=== PATIENT | female | born 1990 | race Caucasian/White ===

== ENCOUNTER 2024-06-10 06:52 | Inpatient (IN) | payer OTHER ==
[~2024-06-10] VITALS: Ht 177.8 cm; Wt 86.8 kg
[2024-06-10] MEDS: cefTRIAXone 1GM/50ML D5W 50 ML IV SCH (01:45)
[2024-06-10 07:35] VITALS: PULSE 117; RESP 28; O2SAT 97
--- NOTE | 2024-06-10 09:19 | ED.PDOC ---
SOB-HPI HPI Comments 34 y.o female with PMH of DM, presents to the ED via EMS for a chief complaint of SOB associated with body aches, chills, nausea and vomiting that started one day ago. Patient reports recent contact exposure to by family x 1 week ago. Per EMS patient's blood glucose was 376 and route and upon ED arrival at read 471. Patient denies any chest pain, fevers, urinary symptoms. Chief Complaint: Shortness of Breath Time Seen by MD: 09:03 Reviewed notes: Nurses Notes, Medications, Allergies Information Source: Patient Mode of Arrival: EMS Severity: Moderate Timing: Days (1) Duration: Since onset Context: At Rest PE Risk Factors: None History of: None Modifying Factors: Nothing Associated Signs and Symptoms: Other Past Medical History PAST MEDICAL HISTORY: DM Surgical History: Denies all surgeries BUSINESS FUNCTIONAL ANALYST History: No Pertinent BUSINESS FUNCTIONAL ANALYST History Family History Family History: Reviewed,noncontributory to illness Social History Smoker: Non-Smoker Alcohol: Denies ETOH Use Drugs: Denies Drug Use Lives In: Home Constitutional: reports: chills; denies: diaphoresis, fatigue, fever, malaise, sweats, weakness, others EENTM: denies: blurred vision, double vision, ear bleeding, ear discharge, ear drainage, ear pain, ear ringing, eye pain, eye redness, hearing loss, mouth pain, mouth swelling, nasal discharge, nose bleeding, nose congestion, nose pain, photophobia, tearing, throat pain, throat swelling, voice changes, others Respiratory: reports: SOB at rest, shortness of breath, SOB with excertion; denies: cough, hemoptysis, orthopnea, stridor, wheezing, others Cardiovascular: denies: chest pain, dizzy spells, diaphoresis, Dyspnea on exertion, edema, irregular heart beat, left arm pain, lightheadedness, palpitations, PND, syncope, others Gastrointestinal: reports: nausea, vomiting; denies: abdomen distended, abdominal pain, blood streaked bowels, constipated, diarrhea, dysphagia, difficulty swallowing, hematemesis, melena, poor appetite, poor fluid intake, rectal bleeding, rectal pain, others Genitourinary: denies: abnormal vagina bleeding, burning, dyspareunia, dysuria, flank pain, frequency, hematuria, incontinence, pain, , vagina disch arge, urgency, others Neurological: denies: dizziness, fainting, headache, left sided numbness, left sided weakness, numbness, paresthesia, pre-existing deficit, right sided numbness, right sided weakness, seizure, speech problems, tingling, tremors, weakness, others Musculoskeletal: reports: muscle pain; denies: back pain, gout, joint pain, joint swelling, muscle stiffness, neck pain, others Integumetry: denies: bruises, change in color, change in hair/nails, dryness, laceration, lesions, lumps, rash, wounds, others Allergic/Immunocompromised: denies: Difficulty Healing, Frequent Infections, Hives, Itching, others Hematologic/Lymphatic: denies: anemia, blood clots, easy bleeding, easy bruising, swollen glands, others Endocrine: denies: excessive hunger, excessive sweating, excessive thirst, excessive urination, flushing, intolerance to cold, intolerance to heat, unexplained weight gain, unexplained weight loss, others Psychiatric: denies: anxiety, bipolar disorder, depression, hopeless, panic disorder, schizophrenia, sleepless, suicidal, others All Other Systems: Reviewed and Negative Physical Exam General Appearance: Moderate Distress, Normal HEENT: Normal ENT Inspection, Pharynx Normal, TMs Normal Neck: Full Range of Motion, Non-Tender, Normal, Normal Inspection Respiratory: Chest Non-Tender, Lungs Clear, No Accessory Muscle Use, No Respiratory Distress, Normal Breath Sounds Cardiovascular: No Edema, No JVD, No Murmur, No Gallop, Normal Peripheral Pulses, Regular Rate/Rhythm Breast Exam: Deferred Gastrointestinal: No Organomegaly, Non Tender, No Pulsatile Mass, Normal Bowel Sounds, Soft Genitalia: Deferred Pelvic: Deferred Rectal: Deferred Extremities: No calf tenderness, Normal capillary refill, Normal inspection, Normal range of motion, Non-tender, No pedal edema Musculoskeletal : Apperance: Normal Neurologic: Alert, speech language pathologist travel II-XII nml as Tested, No Motor Deficits, Normal Affect, Normal Mood, No Sensory Deficits Cerebellar Function: Normal Reflexes: Normal Skin: Dry, Normal Color, Warm Lymphatic: No Adenopathy Was a procedure done? Was a procedure done?: No Differential Dx Differential Diagnosis: Asthma, Bronchitis, Respiratory Distress, URI Comments Hyperglycemia, DKA, electrolyte imbalance, Dehydration X-Ray, Labs, Meds, VS Vital Signs Date Time Temp Pulse Resp B/P (MAP) Pulse Ox O2 Delivery O2 Flow Rate FiO2 06/10/24 08:00 107 06/10/24 07:35 117 28 97 Room Air* 0 21 06/10/24 07:33 98.1 117 28 119/68 (85) 97 98.1 06/10/24 07:02 97.6 110 24 109/70 (83) 96 Lab Test 06/10/24 11:40 06/10/24 11:28 06/10/24 10:54 06/10/24 10:45 Range/Units Potassium Level Pending 5.1 3.5-5.1 mmol/L Troponin I High Sensitivity < 3 L < 3 L </=34 ng/L Blood Gas Specimen Type Arterial Blood Gas Sample Site Right radial Blood Gas Patient Temperature 37.0 Arterial Blood Date Drawn [id number] Arterial Blood pH 6.949 *L 7.350-7.450 Arterial Blood Partial Pressure CO2 < 12.6 *L 32.0-45.0 mmHg Arterial Blood Partial Pressure O2 100.8 83.0-108.0 mmHg Arterial Blood Oxygen Saturation 97.2 94.0-98.0 % Arterial Blood Oxyhemoglobin 96.0 94.0-98.0 % Arterial Blood Carboxyhemoglobin 0.4 L 0.5-1.5 % Arterial Blood Methemoglobin 0.8 0.0-1.5 % Luis Enrique Test Yes Blood Gas Total Hemoglobin 17.40 H 12.0-16.0 g/dL Blood Gas Modality Room air FiO2 % 21.0 Blood Gas Critical Value Read Back Yes Blood Gas Notified Whom henok Guevara md Blood Gas Notified Time [id number] Blood Gas Notified By [employer] daljit masters White Blood Count 13.4 H 4.4-10.8 10^3/uL Red Blood Count 5.83 H 4.0-5.20 10^6/uL Hemoglobin 16.9 H 12.2-16.2 g/dL Hematocrit 52.3 H 36.0-46.0 % Mean Corpuscular Volume 89.6 80.0-100.0 fL Mean Corpuscular Hemoglobin 28.9 28.0-32.0 pg Mean Corpuscular Hemoglobin Concent 32.2 32.0-36.0 g/dL Red Cell Distribution Width 14.5 H 11.8-14.3 % Platelet Count 122 L 140-450 10^3/uL Mean Platelet Volume 9.1 6.9-10.8 fL Neutrophils (%) (Auto) 85.9 H 37.0-80.0 % Lymphocytes (%) (Auto) 5.6 L 10.0-50.0 % Monocytes (%) (Auto) 8.3 0.0-12.0 % Eosinophils (%) (Auto) 0.0 0.0-7.0 % Basophils (%) (Auto) 0.2 0.0-2.0 % Neutrophils # (Auto) 11.5 H 1.6-8.6 10 ^3/uL Lymphocytes # (Auto) 0.8 0.4-5.4 10 ^3/uL Monocytes # (Auto) 1.1 0-1.3 10 ^3/uL Eosinophils # (Auto) 0 0-0.8 10 ^3/uL Basophils # (Auto) 0 0-0.2 10 ^3/uL Nucleated Red Blood Cells 0.2 % Prothrombin Time 10.7 9.3-11.8 sec Prothrombin Time INR 1.01 0.9-1.15 Activated Partial Thromboplast Time 40.3 H 24.5-34.5 SEC Sodium Level 127 L 136-145 mmol/L Chloride Level 104 98-107 mmol/L Carbon Dioxide Level < 10 *L 20-31 mmol/L Anion Gap 13.03398 5-15 Blood Urea Nitrogen 10 9-23 mg/dL Creatinine 1.06 H 0.550-1.02 mg/dL Glomerular Filtration Rate Calc 70 >90 mL/min BUN/Creatinine Ratio 9.4 L 10.0-20.0 Serum Glucose 386 H 74-106 mg/dL Calcium Level 8.6 L 8.7-10.4 mg/dL Total Bilirubin 0.3 0.2-1.0 mg/dL Aspartate Amino Transferase (AST) 22 13-40 U/L Alanine Aminotransferase (ALT) 68 H 7-40 U/L Alkaline Phosphatase 114 46-116 U/L B-Type Natriuretic Peptide 41.31 0-100 pg/mL Total Protein 7.3 5.7-8.2 g/dL Albumin 4.4 3.2-4.8 g/dL Beta-Hydroxybutyric Acid > 4.500 H < 0.4 mmol/L Influenza Type A Antigen Positive Negative Influenza Type B Antigen Negative Negative SARS-CoV-2 Antigen (Rapid) Negative NEGATIVE Test 06/10/24 09:00 06/10/24 08:14 Range/Units Urine Color Colorless Yellow Urine Clarity Clear Clear Urine pH 5.5 5.0-9.0 Urine Specific [place] 1.017 1.001-1.035 Urine Protein 1+ H Negative Urine Ketones 4+ H Negative Urine Blood 1+ H Negative /uL Urine Nitrite Negative Negative Urine Bilirubin Negative Negative Urine Urobilinogen Normal Negative mg/dL Urine Leukocyte Esterase Negative Negative /uL Urine RBC 1 0 - 4 /hpf Urine WBC 2 0 - 5 /hpf Urine Squamous Epithelial Cells Few <5 /hpf Urine Bacteria None seen None Seen /hpf Urine Mucus Few None Seen Urine Glucose 4+ H Normal mg/dL Urine Test Negative Negative POC Glucose 421 *H 70-106 mg/dl Current Medications Medications (Trade) Dose Ordered Sig/Rolo Route Start Time Stop Time Status Last Admin Metoclopramide HCl (Reglan Injection) 10 mg ONCE ONCE IV 06/10/24 10:30 06/10/24 10:31 DC 06/10/24 10:37 Ondansetron HCl (Zofran) 4 mg ONCE ONCE IV 06/10/24 10:30 06/10/24 10:31 DC 06/10/24 10:37 Sodium Chloride 1,000 ml @ 150 mls/hr Q6H40M ONCE IV 06/10/24 10:30 06/10/24 17:09 06/10/24 10:33 Sodium Bicarbonate 100 ml ONCE ONCE IV 06/10/24 11:45 06/10/24 11:46 DC 06/10/24 11:45 Time of 1ST Reevaluation: 09:26 Reevaluation 1ST: Unchanged Patient Education/Counseling: Diagnosis, Treatment Family Education/Counseling: No Family Present Additional Information I reviewed the following notes from patient's past medical encounters: UA, LAB, PHA The following tests were ordered, and results were reviewed by me: UA I reviewed and agreed with the following test results read by other providers CXR I discussed treatment and results with medical personnel and patient Departure 1 Departure Time of Disposition: 11:56 Impression: Primary Impression: DKA (diabetic ketoacidosis) Additional Impression: Influenza A Disposition: 09 ADMITTED INPATIENT Admit to: ICU Condition: Critical Critical Care Note Critical Care Time?: Yes (45 min-critical care time only) Stability Stability form required: No I personally scribed for PAUL GUEVARA MD ([email or web address]) on 06/10/24 at 09:19. Electronically submitted by Millie Thomas ([facility]). I personally scribed for PAUL [facility] ([facility] on 06/10/24 at 09:30. Electronically submitted by Millie Thomas ([facility]). I personally scribed for PAUL GUEVARA MD ([facility] on 06/10/24 at 09:50. Electronically submitted by Millie Thomas ([facility]). I personally scribed for PAUL GUEVARA MD ([facility] on 06/10/24 at 10:16. Electronically submitted by Millie Thomas ([facility]). PAUL GUEVARA MD Jun 10, 2024 09:19
[2024-06-10 10:31] LABS: Urine Bacteria None Seen /hpf (None Seen)
[2024-06-10] MEDS: SODIUM CHLORIDE 0.9% 1,000 ML IV ONE ×3 (10:33→23:10)
[2024-06-10] MEDS: ONDANSETRON HCL 4 MG/2 ML VIAL IV ONE (10:37)
[2024-06-10] MEDS: METOCLOPRAMIDE HCL 5MG/ml INJ 2ml VIAL IV ONE (10:37)
[2024-06-10 10:52] LABS: Urine Blood 1+ /uL (Negative); Urine Clarity Clear (Clear); Urine Color Colorless (Yellow); Urine Mucus FEW (None Seen); Urine Protein, UAD 1+ (Negative); Urine Specific Gravity 1.017 (1.001-1.035); Urine Urobilinogen Normal (Negative); Urine WBC 2 /hpf (0 - 5); Urine pH 5.5 (5.0-9.0)
[2024-06-10 11:21] LABS: Basophils # (auto) 0 10 ^3/uL (0-0.2); Basophils % (auto) 0.2 % (0.0-2.0); Eosinophils # (auto) 0 10 ^3/uL (0-0.8); Hematocrit 52.3 % (36.0-46.0); Hemoglobin 16.9 g/dL (12.2-16.2); Lymphocytes # (auto) 0.8 10 ^3/uL (0.4-5.4); Lymphocytes % (auto) 5.6 % (10.0-50.0); Mean Corpuscular Hemoglobin 28.9 pg (28.0-32.0); Mean Corpuscular Hgb Conc. 32.2 g/dL (32.0-36.0); Mean Corpuscular Volume 89.6 fL (80.0-100.0); Monocytes # (auto) 1.1 10 ^3/uL (0-1.3); Monocytes % (auto) 8.3 % (0.0-12.0); Neutrophils # (auto) 11.5 10 ^3/uL (1.6-8.6); Neutrophils % (auto) 85.9 % (37.0-80.0); Nucleated Red Blood Cells % 0.2 %; Platelet Count (auto) 122 10^3/uL (140-450); Red Blood Cells 5.83 10^6/uL (4.0-5.20); Red Cell Distribution Width 14.5 % (11.8-14.3); White Blood Cell 13.4 10^3/uL (4.4-10.8)
[2024-06-10 11:39] LABS: Albumin 4.4 g/dL (3.2-4.8); Alkaline Phosphatase 114 U/L (46-116); Anion Gap 13.00001 (5-15); Aspartate Aminotransferase 22 U/L (13-40); BUN/Creatinine Ratio 9.4 (10.0-20.0); Blood Urea Nitrogen 10 mg/dL (9-23); Chloride 104 mmol/L (98-107)
[2024-06-10 11:40] LABS: Total Protein 7.3 g/dL (5.7-8.2)
[2024-06-10 11:45] LABS: INR 1.01 (0.9-1.15); Partial Thromboplastin Time 40.3 SEC (24.5-34.5); Prothrombin Time 10.7 sec (9.3-11.8)
[2024-06-10] MEDS ORDERED: POTASSIUM CHL 20MEQ/100ML 100 ML IV SCH (11:45)
[2024-06-10] MEDS: SODIUM BICARB 8.4% 50Meq/50ml SYR Vial IV ONE ×2 (11:45→17:13)
[2024-06-10 11:50] LABS: Alanine Aminotransferase 68 U/L (7-40); Calcium 8.6 mg/dL (8.7-10.4); Glucose 386 mg/dL (74-106); Potassium 5.1 mmol/L (3.5-5.1); Sodium 127 mmol/L (136-145)
[2024-06-10 11:51] LABS: COVID19 ANTIGEN SOFIA FIA NEGATIVE (NEGATIVE); Rapid Influenza B Negative (Negative)
[2024-06-10 11:52] LABS: Bilirubin, Total 0.3 mg/dL (0.2-1.0); Carbon Dioxide < 10 mmol/L (20-31)
[2024-06-10 11:53] LABS: Rapid Influenza A Positive (Negative)
--- NOTE | 2024-06-10 12:21 | DVH ---
CHEST RADIOGRAPH Indication: cough Technique: Single frontal view of the chest was obtained COMPARISON: None FINDINGS: Lines and Tubes: None Lungs: Clear Pleura: No effusion. No pneumothorax. Cardiomediastinal contours: Unremarkable Bones: Unremarkable IMPRESSION: No acute disease.
[2024-06-10] MEDS: INSULIN DRIP 100 UNIT/100ML 100 ML IV SCH ×2 (12:30→13:00)
[2024-06-10] MEDS ORDERED: DEXTROSE (50%) 50ML SYRG IV PRN ×2 (12:30→13:00)
[2024-06-10] MEDS: OSELTAMIVIR 75 MG CAP PO ONE (12:30)
[2024-06-10] MEDS: SODIUM CHLORIDE 0.9% 1,000 ML IV SCH ×4 (12:30→21:08)
[2024-06-10] MEDS: D5W/SOD CHL 0.45%/KCL 20MEQ 1,000 ML IV SCH ×2 (12:30)
[2024-06-10] MEDS: SOD CHL 0.9%/ KCL 20MEQ 1,000 ML IV SCH (12:30)
[2024-06-10] MEDS ORDERED: POTASSIUM CHL 20MEQ/100ML 200 ML IV PRN (12:30)
--- NOTE | 2024-06-10 12:58 | DVHHP2 ---
History of Present Illness Reason for Visit: Shortness of the breath on and aches and chills History of Present Illness 34 yr old dm no sx history cc here patient states she has not been able to catch her breath and she has been shortness of the breath he has been going on for last 24 hours. She does state she has a cough it came on all of a sudden. She states she has been taking her medications as prescribed. She denies any chest pain. The patient has also had some nausea and vomiting. We will evaluating patient patient with he was Schmorl's breathing on my exam evaluating patient's labs and imaging patient had a white count of 13.4 hemoglobin 16.9 52.3 platelet count was 122 sodium was 127 CO2 was less than 10 creatinine was 1.06 glucose was 386 troponin was negative BNP was negative calcium was 8.6 AST was 68 chest x-ray was unremarkable patient was provided with sodium bicarb for times see him normal saline Zofran or Reglan patient's PH is consistent with DKA. We will admit to ICU for acute DKA patient also has influenza tested and she was positive. We will admit for IV hydration DKA treatment in insulin and influenza treatment Past Medical History dm Past Surgical History denies surgical history Family History Reviewed, non-contributory to the management of this case. Past Social History The patient lives at home, denies smoking, alcohol or illicit drugs abuse. Review of Systems Constitutional: No: Fever, Chills, Sweats, Weakness, Malaise, Other Eyes: No: Pain, Vision change, Conjunctivae inflammation, Eyelid inflammation, Other, Redness ENT: No: Ear pain, Ear discharge, Nose pain, Nose discharge, Nose congestion, Mouth pain, Mouth swelling, Throat pain, Throat swelling, Other Respiratory: Shortness of breath, SOB with excertion; No: Cough, Dry, Wheezing, Hemoptysis, Pleuritic Pain, Sputum, Wheezing, Other Cardiovascular: No: Chest Pain, Palpitations, Orthopnea, Paroxysmal Noc. Dyspnea, Edema, Lt Headedness, Other Gastrointestinal: Nausea, Vomiting; No: Abdominal Pain, Diarrhea, Constipation, Melena, Hematochezia, Other Genitourinary: No Dysuria, No Frequency, No Incontinence, No Hematuria, No Retention, No Other Musculoskeletal: No: other, neck pain, shoulder pain, arm pain, back pain, hand pain, leg pain, foot pain Skin: No: Rash, Lesions, Jaundice, Bruising, Other Neurological: Other (body chills and nausea and vomiting ) Allergies: Coded Allergies: Acetaminophen (Verified Allergy, Intermediate, HIVES, 06/10/24) Hydrocodone (Verified Allergy, Intermediate, HIVES, 06/10/24) Medications Current Medications Medications Dose Ordered Sig/Rolo Route Start Time Stop Time Status Last Admin Dose Admin Potassium Chloride 100 ml @ 50 mls/hr Q2H IV 06/10/24 11:45 06/10/24 19:44 UNV Sodium Chloride 1,000 ml @ 500 mls/hr Q2H IV 06/10/24 12:30 06/10/24 16:29 UNV Sodium Chloride 1,000 ml @ 250 mls/hr Q4H IV 06/10/24 16:30 06/10/24 18:29 UNV Sodium Chloride 1,000 ml @ 150 mls/hr Q6H40M IV 06/10/24 18:30 UNV Potassium Chloride/Dextrose/ Sod Cl 1,000 ml @ 175 mls/hr Q5H43M IV 06/10/24 12:30 UNV Potassium Chloride/Dextrose/ Sod Cl 1,000 ml @ 150 mls/hr Q6H40M IV 06/10/24 12:30 UNV Potassium Chloride/Sodium Chloride 1,000 ml @ 150 mls/hr Q6H40M IV 06/10/24 12:30 UNV Potassium Chloride 200 ml @ 50 mls/hr ONCE PRN IV 06/10/24 12:30 06/11/24 10:29 UNV Insulin Human (Reg)/Sodium Chloride 100 ml @ 0.5 mls/hr Q24H IV 06/10/24 12:30 UNV Dextrose 50 ml UD PRN IV 06/10/24 12:30 UNV Diagnostic Test (Pha) 1 strip Q90MIN 06/10/24 13:30 UNV Insulin Glargine 15 units DAILY SC 06/11/24 10:00 UNV Exam Vital Signs Vital Signs Date Time Temp Pulse Resp B/P (MAP) Pulse Ox O2 Delivery O2 Flow Rate FiO2 06/10/24 11:30 100 28 121/70 (87) 97 06/10/24 07:35 Room Air* 0 21 06/10/24 07:33 98.1 98.1 General Appearance: Alert, Oriented X3, Cooperative, mild distress HEENT: Atraumatic, PERRLA, EOMI, Mucous membr. moist/pink Respiratory: Clear to auscultation, Normal air movement Cardiovascular: Regular rate, Normal S1, Normal S2, No murmurs Abdominal: Normal bowel sounds, Soft, No tenderness, No hepatospenomegaly, No masses Extremities: No clubbing, No cyanosis, No edema, Normal pulses, No tenderness/swelling Skin: No rashes, No breakdown, No significant lesion Neuro: Normal gait, Normal speech, Strength at 5/5 X4 ext, Normal tone, Sensation intact, Cranial nerves 3-12 NL Psych/Mental Status: Mental status NL, Mood NL Labs/Xrays Chest x-ray unremarkable I reviewed labs, imaging CT scan abdomen pelvis, EKG and all diagnostic studies on this patient from ED records and the medical chart Labs Test 06/10/24 11:40 06/10/24 11:28 06/10/24 10:54 06/10/24 10:45 Range/Units Potassium Level 5.4 H 3.5-5.1 mmol/L Troponin I High Sensitivity < 3 L </=34 ng/L Blood Gas Specimen Type Arterial Blood Gas Sample Site Right radial Blood Gas Patient Temperature 37.0 Arterial Blood Date Drawn [id number] Arterial Blood pH 6.949 *L 7.350-7.450 Arterial Blood Partial Pressure CO2 < 12.6 *L 32.0-45.0 mmHg Arterial Blood Partial Pressure O2 100.8 83.0-108.0 mmHg Arterial Blood Oxygen Saturation 97.2 94.0-98.0 % Arterial Blood Oxyhemoglobin 96.0 94.0-98.0 % Arterial Blood Carboxyhemoglobin 0.4 L 0.5-1.5 % Arterial Blood Methemoglobin 0.8 0.0-1.5 % Luis Enrique Test Yes Blood Gas Total Hemoglobin 17.40 H 12.0-16.0 g/dL Blood Gas Modality Room air FiO2 % 21.0 Blood Gas Critical Value Read Back Yes Blood Gas Notified Whom henok Guevara md Blood Gas Notified Time [id number] Blood Gas Notified By Residential Monitor daljit masters White Blood Count 13.4 H 4.4-10.8 10^3/uL Red Blood Count 5.83 H 4.0-5.20 10^6/uL Hemoglobin 16.9 H 12.2-16.2 g/dL Hematocrit 52.3 H 36.0-46.0 % Mean Corpuscular Volume 89.6 80.0-100.0 fL Mean Corpuscular Hemoglobin 28.9 28.0-32.0 pg Mean Corpuscular Hemoglobin Concent 32.2 32.0-36.0 g/dL Red Cell Distribution Width 14.5 H 11.8-14.3 % Platelet Count 122 L 140-450 10^3/uL Mean Platelet Volume 9.1 6.9-10.8 fL Neutrophils (%) (Auto) 85.9 H 37.0-80.0 % Lymphocytes (%) (Auto) 5.6 L 10.0-50.0 % Monocytes (%) (Auto) 8.3 0.0-12.0 % Eosinophils (%) (Auto) 0.0 0.0-7.0 % Basophils (%) (Auto) 0.2 0.0-2.0 % Neutrophils # (Auto) 11.5 H 1.6-8.6 10 ^3/uL Lymphocytes # (Auto) 0.8 0.4-5.4 10 ^3/uL Monocytes # (Auto) 1.1 0-1.3 10 ^3/uL Eosinophils # (Auto) 0 0-0.8 10 ^3/uL Basophils # (Auto) 0 0-0.2 10 ^3/uL Nucleated Red Blood Cells 0.2 % Prothrombin Time 10.7 9.3-11.8 sec Prothrombin Time INR 1.01 0.9-1.15 Activated Partial Thromboplast Time 40.3 H 24.5-34.5 SEC Sodium Level 127 L 136-145 mmol/L Chloride Level 104 98-107 mmol/L Carbon Dioxide Level < 10 *L 20-31 mmol/L Anion Gap 13.14805 5-15 Blood Urea Nitrogen 10 9-23 mg/dL Creatinine 1.06 H 0.550-1.02 mg/dL Glomerular Filtration Rate Calc 70 >90 mL/min BUN/Creatinine Ratio 9.4 L 10.0-20.0 Serum Glucose 386 H 74-106 mg/dL Calcium Level 8.6 L 8.7-10.4 mg/dL Total Bilirubin 0.3 0.2-1.0 mg/dL Aspartate Amino Transferase (AST) 22 13-40 U/L Alanine Aminotransferase (ALT) 68 H 7-40 U/L Alkaline Phosphatase 114 46-116 U/L B-Type Natriuretic Peptide 41.31 0-100 pg/mL Total Protein 7.3 5.7-8.2 g/dL Albumin 4.4 3.2-4.8 g/dL Beta-Hydroxybutyric Acid > 4.500 H < 0.4 mmol/L Influenza Type A Antigen Positive Negative Influenza Type B Antigen Negative Negative SARS-CoV-2 Antigen (Rapid) Negative NEGATIVE Test 06/10/24 09:00 06/10/24 08:14 Range/Units Urine Color Colorless Yellow Urine Clarity Clear Clear Urine pH 5.5 5.0-9.0 Urine Specific [place] 1.017 1.001-1.035 Urine Protein 1+ H Negative Urine Ketones 4+ H Negative Urine Blood 1+ H Negative /uL Urine Nitrite Negative Negative Urine Bilirubin Negative Negative Urine Urobilinogen Normal Negative mg/dL Urine Leukocyte Esterase Negative Negative /uL Urine RBC 1 0 - 4 /hpf Urine WBC 2 0 - 5 /hpf Urine Squamous Epithelial Cells Few <5 /hpf Urine Bacteria None seen None Seen /hpf Urine Mucus Few None Seen Urine Glucose 4+ H Normal mg/dL Urine Test Negative Negative POC Glucose 421 *H 70-106 mg/dl Assessment/Plan Assessment/Plan acute early dka with hx of type 1 dm likely since co2 is low and bicarb low IV hydration NS 2Lnc ) provided in er , will provide ivf for now Initiated DKA protocol for now Every hour Accu-Check Administer sodium bicarb if pH less than 6.9 since ph is low BMP every 6 hours Replace electrolyte as needed Repeat ABG now NPO except ice chips Diabetic education acute influenza a illness ordered tamiflu ordered tylenol as needed for fever acute hyponatremia ordered urine sodium ordered serum osm and urine osm ordered ivf for now acute leukocytosis likely in setting of severe dehydration ordered blood cultures, procalcitonin fu lactate no need for antibiotics unless fever cxr normal acute Lactic acidosis metabolic likely in setting of dka bicarb is ph <6.9 cont dka protocol treatment Acute tachycardia in setting of dka ordered ekg st tach monitor for resp distress Acute on chronic EDGARDO likely in setting of dehydration and dka cont ivf for now monitor for uptrend acute Ketonuria in setting of dka found in ua IV fluids acute thrombocytopenia monitor fen/ppx lovenox npo ice chips protonix ivf insulin drip plan admit to icu for management of dka Plan discussed with: Patient, Spouse Date of Service: Jun 10, 2024 Billing Provider: NEENA SANCHEZ DNP Common Visit Codes: 08524-[id number] INP/OBS CARE (HIGH), [id number] CARE 30- 74 MIN (Total critical care time: Approximately 45 minutes This critical care time included obtaining a history; examining the patient; pulse oximetry; ordering and review of studies; arranging urgent treatment with development of a management plan; evaluation of patient's response to treatment; frequent reassessment; and, discussions with other providers.) NEENA SANCHEZ DNP Jun 10, 2024 12:58
[2024-06-10] MEDS: INSULIN LANTUS (GLARGINE) 1 /0.01ml (100units/ml) SC ONE ×2 (12:59→13:00)
[2024-06-10] MEDS ORDERED: NITROGLYCERIN 0.4 MG SL TAB SL PRN (13:00)
[2024-06-10] MEDS ORDERED: DOCUSATE SOD 100 MG CAP PO PRN (13:00)
[2024-06-10] MEDS ORDERED: MORPHINE SULFATE INJ 2 MG/ml SYRG IV PRN (13:00)
[2024-06-10] MEDS: PANTOPRAZOLE 40 MG/10 ML VIAL INJ IV ONE (13:30)
[2024-06-10] MEDS: SODIUM BICARB 50mEq/50ml Vial 150 ML in SOD CHL 0.45% 1,000 ML IV SCH (13:30)
[2024-06-10] MEDS: ACCU-CHEK COMFORT CURVE STRIP VI SCH (13:30)
[2024-06-10] MEDS ORDERED: ACCU-CHEK COMFORT CURVE STRIP VI SCH (13:30)
[2024-06-10 14:03] LABS: Chloride 106 mmol/L (98-107); Potassium 5.1 mmol/L (3.5-5.1)
[2024-06-10 14:10] LABS: BUN/Creatinine Ratio 12.4 (10.0-20.0); Blood Urea Nitrogen 12 mg/dL (9-23); Magnesium 2.1 mg/dL (1.6-2.6)
[2024-06-10 14:12] LABS: Calcium 8.5 mg/dL (8.7-10.4); Glucose 361 mg/dL (74-106); Sodium 131 mmol/L (136-145)
[2024-06-10 14:15] LABS: Anion Gap 15.00001 (5-15); Carbon Dioxide < 10 mmol/L (20-31)
[2024-06-10 14:32] LABS: Lactic Acid w/Reflex 2.8 mmol/L (0.4-2.0)
[2024-06-10] MEDS: IOHEXOL 350 MG/ML 100ML IJ ONE (16:14)
[2024-06-10] MEDS: ENOXAPARIN SOD 80 MG/0.8ML SYRINGE SC SCH (16:16)
[2024-06-10] MEDS ORDERED: SODIUM CHLORIDE 0.9% 1,000 ML IV SCH ×2 (16:30→18:30)
[2024-06-10 16:31] LABS: Base Excess -25.7 mmol/L (-2.0-3.0)
[2024-06-10 17:53] LABS: Basophils # (auto) 0.1 10 ^3/uL (0-0.2); Basophils % (auto) 0.4 % (0.0-2.0); Eosinophils # (auto) 0 10 ^3/uL (0-0.8); Hematocrit 51.9 % (36.0-46.0); Hemoglobin 16.6 g/dL (12.2-16.2); Lymphocytes # (auto) 1.1 10 ^3/uL (0.4-5.4); Lymphocytes % (auto) 6.8 % (10.0-50.0); Mean Corpuscular Hemoglobin 28.7 pg (28.0-32.0); Mean Corpuscular Volume 89.9 fL (80.0-100.0); Monocytes # (auto) 1.3 10 ^3/uL (0-1.3); Monocytes % (auto) 7.9 % (0.0-12.0); Neutrophils # (auto) 13.8 10 ^3/uL (1.6-8.6); Neutrophils % (auto) 84.9 % (37.0-80.0); Platelet Count (auto) 132 10^3/uL (140-450); Red Blood Cells 5.77 10^6/uL (4.0-5.20); Red Cell Distribution Width 14.6 % (11.8-14.3); White Blood Cell 16.2 10^3/uL (4.4-10.8)
--- NOTE | 2024-06-10 18:20 | DVH ---
CLINICAL HISTORY: eval for PE TECHNIQUE: CT angiogram of the chest was performed with intravenous contrast. 3D MIP reconstructed i mages were created and archived on the PACS system. This exam was performed according to our [facility] ntal dose optimization program. Up-to-date CT equipment and radiation dose reduction techniques are u tilized as appropriate. [Radimetrics Exposure Report] CTDI: [CTDIvol] DLP: 451.39 WID: COMPARISON: None FINDINGS: Lower Neck: Unremarkable Axilla, Mediastinum and [place]: Mild wall thickening of the lower esophagus. No thoracic lymphadenopath y. Heart and Great Vessels: Normal-sized heart without pericardial effusion. The thoracic aorta is curran nt and normal caliber. Widely patent 3-vessel aortic arch. There is no central or segmental pulmonar y artery filling defects to suggest pulmonary embolism. Motion artifact slightly limits evaluation of subsegmental pulmonary arteries. Airway, Lungs and Pleura: Trachea contains small amount of linear debris. Trachea central airways ot herwise patent. Patchy small mixed airspace consolidations in the left upper lobe and to a lesser ext ent in the basilar left lower lobe. There is no pneumothorax or pleural effusion. Chest Wall and Osseous Structures: Minor thoracic spondylosis. No destructive osseous lesion. Upper abdomen: Mild hepatic steatosis. No acute abnormality. IMPRESSION: 1. No evidence of pulmonary embolism. 2. Left lung pneumonia more pronounced in the left upper lobe. 3. Mild wall thickening of the lower esophagus which could reflect esophagitis
[2024-06-10 19:18] LABS: Base Excess -18.6 mmol/L (-2.0-3.0)
[2024-06-10 19:38] LABS: Potassium 3.8 mmol/L (3.5-5.1)
[2024-06-10 19:39] LABS: Anion Gap 19.00001 (5-15)
[2024-06-10] MEDS: IPRATROPIUM BROM 0.5 MG/2.5ML INH SOL NEB ONE (19:40)
[2024-06-10] MEDS: IPRATROPIUM BROM 0.5 MG/2.5ML INH SOL ONE (19:41)
[2024-06-10] MEDS: LEVALBUTEROL HCL 1.25 MG/3 ML NEB ONE (19:42)
[2024-06-10 19:44] LABS: BUN/Creatinine Ratio 11.6 (10.0-20.0); Blood Urea Nitrogen 11 mg/dL (9-23)
[2024-06-10 19:45] LABS: Calcium 8.3 mg/dL (8.7-10.4); Chloride 107 mmol/L (98-107); Glucose 212 mg/dL (74-106); Sodium 136 mmol/L (136-145)
[2024-06-10 19:53] LABS: Carbon Dioxide < 10 mmol/L (20-31)
[2024-06-10] MEDS: InsuLIN REG 1unit/0.01ml Soln (100units/ml) SC SCH (20:00)
--- NOTE | 2024-06-10 20:39 | DVHINCON2 ---
Date of service: Jun 10, 2024 Referring Physician Stephanie Suresh, GREER Reason for Consultation Dyspnea, influenza A, pneumonia. History of Present Illness A 34-year-old woman with past medical history of diabetes mellitus who presents to the ED c/o shortness of breath, being unable to catch her breath, sx ongoing for past 24 hours. She also has associated sx of cough of sudden onset, nausea and vomiting. ED workup noted WBC of 13.4, H&H 16.9 and 52.3; platelet count was 122. Sodium of 127, CO2 less than 10. Creatinine 1.06, glucose 386. Troponin was negative, BNP was negative. Calcium was 8.6. AST was 68. Chest x-ray was unremarkable. Patient was admitted to ICU w/ findings of acute DKA and positive influenza. Pulmonary consultation is requested for evaluation and management due to these findings. Review of Systems: 14-point review of systems negative unless otherwise noted above. Past Medical History: Diabetes mellitus Past Surgical History: None Medications: Reviewed. Allergies: Acetaminophen Hydrocodone. Family History: No family history of premature CAD. No family history of lung disorders. Social History: Nonsmoker. No alcohol or illicit drug use. Allergies: Coded Allergies: Acetaminophen (Verified Allergy, Intermediate, HIVES, 06/10/24) Hydrocodone (Verified Allergy, Intermediate, HIVES, 06/10/24) Current Medications Current Medications Medications (Trade) Dose Ordered Sig/Rolo Route PRN Reason Start Time Stop Time Status Last Admin Potassium Chloride 100 ml @ 50 mls/hr Q2H IV 06/10/24 11:45 06/10/24 19:44 UNV Sodium Chloride 1,000 ml @ 500 mls/hr Q2H IV 06/10/24 12:30 06/10/24 14:02 DC 06/10/24 12:30 Sodium Chloride 1,000 ml @ 250 mls/hr Q4H IV 06/10/24 16:30 06/10/24 14:02 DC Sodium Chloride 1,000 ml @ 150 mls/hr Q6H40M IV 06/10/24 18:30 06/10/24 14:03 DC Potassium Chloride/Dextrose/ Sod Cl 1,000 ml @ 175 mls/hr Q5H43M IV 06/10/24 12:30 Potassium Chloride/Dextrose/ Sod Cl 1,000 ml @ 150 mls/hr Q6H40M IV 06/10/24 12:30 Hold Potassium Chloride/Sodium Chloride 1,000 ml @ 150 mls/hr Q6H40M IV 06/10/24 12:30 Hold Potassium Chloride 200 ml @ 50 mls/hr ONCE PRN IV DKA K+ PROTOCOL 06/10/24 12:30 06/11/24 10:29 Insulin Human (Reg)/Sodium Chloride 100 ml @ 0.5 mls/hr Q24H IV 06/10/24 12:30 Hold 06/10/24 12:30 Dextrose 50 ml UD PRN IV SEE CURRENT ALGORITHM or SCALE 06/10/24 12:30 06/10/24 14:03 DC Diagnostic Test (Pha) (Accu-Chek Comfort Curve T) 1 strip Q90MIN 06/10/24 13:30 06/10/24 14:03 DC Insulin Glargine (Lantus) 15 units DAILY SC 06/11/24 10:00 Future Hold Sodium Chloride 1,000 ml @ 500 mls/hr Q2H IV 06/10/24 13:00 06/10/24 16:59 DC 06/10/24 14:59 Sodium Chloride 1,000 ml @ 250 mls/hr Q4H IV 06/10/24 17:00 06/10/24 18:59 DC 06/10/24 17:00 Sodium Chloride 1,000 ml @ 150 mls/hr Q6H40M IV 06/10/24 19:00 Insulin Human (Reg)/Sodium Chloride 100 ml @ 0.5 mls/hr Q24H IV 06/10/24 13:00 Dextrose 50 ml UD PRN IV SEE CURRENT ALGORITHM or SCALE 06/10/24 13:00 Diagnostic Test (Pha) (Accu-Chek Comfort Curve T) 1 strip Q90MIN 06/10/24 13:30 06/10/24 18:27 Insulin Glargine (Lantus) 15 units DAILY SC 06/11/24 10:00 Enoxaparin Sodium (Lovenox) 40 mg DAILY SC 06/11/24 10:00 06/10/24 15:32 DC Ondansetron HCl (Zofran) 4 mg Q4HP PRN IV NAUSEA / VOMITING 06/10/24 13:00 Docusate Sodium (Colace Capsule) 100 mg BIDPRN PRN PO FOR CONSTIPATION 06/10/24 13:00 Morphine Sulfate 2 mg Q4HPRN PRN IV SEVERE PAIN (7-10 PAIN SCALE) 06/10/24 13:00 Hold Nitroglycerin (Ntrostat Sublingual) 0.4 mg Q5MINP PRN SL FOR CHEST PAIN 06/10/24 13:00 Sodium Bicarbonate 150 ml/Sodium Chloride 1,150 ml @ 50 mls/hr Q23H IV 06/10/24 13:30 06/10/24 13:30 Oseltamivir Phosphate (Tamiflu 75MG Capsule) 75 mg Q12HR PO 06/10/24 22:00 06/15/24 21:59 Pantoprazole Sodium (Protonix) 40 mg DAILY IV 06/11/24 10:00 Enoxaparin Sodium (Lovenox) 80 mg Q12H SC 06/10/24 16:00 06/10/24 16:16 Levalbuterol HCl (Xopenex Medneb) 1.25 mg Q6HR NEB 06/11/24 00:00 06/10/24 19:45 DC Vital Signs Vital Signs Date Time Temp Pulse Resp B/P (MAP) Pulse Ox O2 Delivery O2 Flow Rate FiO2 06/10/24 19:30 24 99 Room Air* 0 21 06/10/24 18:00 92 115/67 (83) 06/10/24 07:33 98.1 98.1 Physical Exam Gen.: Patient lying in bed in no apparent distress. Breathing on room air. Head: Normocephalic, atraumatic. Eyes: EOMI/PERRLA. Ears: Normal hearing. Normal anatomy. Neck/trachea: Trachea midline, supple. Nose: Normal external anatomy. Mouth: Moist mucous membranes. Chest: Decreased air entry bilaterally. No wheezing or rhonchi. Cardiovascular: Positive S1, positive S2. Regular rate and rhythm. Abdomen: Positive bowel sounds in all 4 quadrants. Soft, non-tender, non- distended. : Deferred. Rectal: Deferred. Skin: Warm, dry. Intact. Extremities: 2+ radial pulses bilaterally. No lower extremity edema. Neuro: Awake, alert, oriented x3. No gross motor or sensory deficits. Cranial nerves II through XII intact. Gait not assessed. Labs/Diagnostic Data Labs Test 06/10/24 19:13 06/10/24 19:00 06/10/24 18:26 06/10/24 17:28 Range/Units Blood Gas Specimen Type Arterial Blood Gas Sample Site Right radial Blood Gas Patient Temperature 37.0 Arterial Blood Date Drawn [id number] Arterial Blood pH 7.220 *L 7.350-7.450 Arterial Blood Partial Pressure CO2 16.2 *L 32.0-45.0 mmHg Arterial Blood Partial Pressure O2 77.7 L 83.0-108.0 mmHg Arterial Blood HCO3 6.5 L 21.0-28.0 mmol/L Arterial Blood Oxygen Saturation 96.5 94.0-98.0 % Arterial Blood Base Excess -18.6 L -2.0-3.0 mmol/L Arterial Blood Oxyhemoglobin 95.5 94.0-98.0 % Arterial Blood Carboxyhemoglobin 0.3 L 0.5-1.5 % Arterial Blood Methemoglobin 0.7 0.0-1.5 % Luis Enrique Test Yes Blood Gas Total Hemoglobin 15.50 12.0-16.0 g/dL Blood Gas Modality Room air FiO2 % 21.0 Blood Gas Critical Value Read Back yes Blood Gas Notified Whom jewel bearing maker sara Blood Gas Notified Time [id number] Blood Gas Notified By shrimp trawler rubi hyde Sodium Level 136 # 136-145 mmol/L Potassium Level 3.8 3.5-5.1 mmol/L Chloride Level 107 98-107 mmol/L Carbon Dioxide Level < 10 *L 20-31 mmol/L Anion Gap 19.22063 H 5-15 Blood Urea Nitrogen 11 9-23 mg/dL Creatinine 0.95 0.550-1.02 mg/dL Glomerular Filtration Rate Calc 80 >90 mL/min BUN/Creatinine Ratio 11.6 10.0-20.0 Serum Glucose 212 H 74-106 mg/dL Calcium Level 8.3 L 8.7-10.4 mg/dL POC Glucose 226 H 70-106 mg/dl White Blood Count 16.2 H 4.4-10.8 10^3/uL Red Blood Count 5.77 H 4.0-5.20 10^6/uL Hemoglobin 16.6 H 12.2-16.2 g/dL Hematocrit 51.9 H 36.0-46.0 % Mean Corpuscular Volume 89.9 80.0-100.0 fL Mean Corpuscular Hemoglobin 28.7 28.0-32.0 pg Mean Corpuscular Hemoglobin Concent 32.0 32.0-36.0 g/dL Red Cell Distribution Width 14.6 H 11.8-14.3 % Platelet Count 132 L 140-450 10^3/uL Mean Platelet Volume 8.8 6.9-10.8 fL Neutrophils (%) (Auto) 84.9 H 37.0-80.0 % Lymphocytes (%) (Auto) 6.8 L 10.0-50.0 % Monocytes (%) (Auto) 7.9 0.0-12.0 % Eosinophils (%) (Auto) 0.0 0.0-7.0 % Basophils (%) (Auto) 0.4 0.0-2.0 % Neutrophils # (Auto) 13.8 H 1.6-8.6 10 ^3/uL Lymphocytes # (Auto) 1.1 0.4-5.4 10 ^3/uL Monocytes # (Auto) 1.3 0-1.3 10 ^3/uL Eosinophils # (Auto) 0 0-0.8 10 ^3/uL Basophils # (Auto) 0.1 0-0.2 10 ^3/uL Nucleated Red Blood Cells 0.0 % Lactic Acid Level 2.1 *H 0.4-2.0 mmol/L Test 06/10/24 13:45 06/10/24 13:36 06/10/24 10:54 06/10/24 10:45 Range/Units Blood Gas Liter Flow 2.00 Blood Gas Spontaneous Rate 26 D-Dimer, Quantitative 1.06 H 0.0-0.49 mg/L FEU Serum Osmolality 300 H 278-298 mOsm/kg Phosphorus Level 3.0 2.4-5.1 mg/dL Magnesium Level 2.1 1.6-2.6 mg/dL Troponin I High Sensitivity 3 L </=34 ng/L Beta-Hydroxybutyric Acid > 4.500 H < 0.4 mmol/L Prothrombin Time 10.7 9.3-11.8 sec Prothrombin Time INR 1.01 0.9-1.15 Activated Partial Thromboplast Time 40.3 H 24.5-34.5 SEC Hemoglobin A1c 10.6 H <5.7 % A1C Total Bilirubin 0.3 0.2-1.0 mg/dL Aspartate Amino Transferase (AST) 22 13-40 U/L Alanine Aminotransferase (ALT) 68 H 7-40 U/L Alkaline Phosphatase 114 46-116 U/L B-Type Natriuretic Peptide 41.31 0-100 pg/mL Total Protein 7.3 5.7-8.2 g/dL Albumin 4.4 3.2-4.8 g/dL Influenza Type A Antigen Positive Negative Influenza Type B Antigen Negative Negative SARS-CoV-2 Antigen (Rapid) Negative NEGATIVE Test 06/10/24 09:00 Range/Units Urine Color Colorless Yellow Urine Clarity Clear Clear Urine pH 5.5 5.0-9.0 Urine Specific [place] 1.017 1.001-1.035 Urine Protein 1+ H Negative Urine Ketones 4+ H Negative Urine Blood 1+ H Negative /uL Urine Nitrite Negative Negative Urine Bilirubin Negative Negative Urine Urobilinogen Normal Negative mg/dL Urine Leukocyte Esterase Negative Negative /uL Urine RBC 1 0 - 4 /hpf Urine WBC 2 0 - 5 /hpf Urine Squamous Epithelial Cells Few <5 /hpf Urine Bacteria None seen None Seen /hpf Urine Mucus Few None Seen Urine Osmolality 471 mOsm/kg Urine Sodium 38 L 40-220 mmol/L Urine Glucose 4+ H Normal mg/dL Urine Test Negative Negative Assessment Impression: Diabetic ketoacidosis Pneumonia, likely gram negative Influenza A Atelectasis Dyspnea Leukocytosis Lactic acidosis Metabolic acidosis Hyponatremia Plan: Supplemental oxygen PRN Titrate to keep O2 sats above 92%. CXR demonstrates no acute opacities, pleural effusion or pneumothorax. CT chest notable for left upper lobe and left lower lobe pneumonia; left lung opacities. Tamiflu course. Continue bronchodilators. Start antibiotics Incentive spirometry d/t atelectasis Therapeutic Lovenox Accu-Cheks, Insulin drip Monitor renal function. Monitor electrolytes. Supplement as necessary. Monitor ins and outs. IV fluid hydration GI prophylaxis - Protonix DVT prophylaxis. Prognosis: Poor given patient's multiple co-morbidities. Condition: Critical Rest of plan per hospitalist and other consultants. A total of 36 minutes of critical care time was spent reviewing the patient rec ord, examining the patient, making a diagnostic and therapeutic plan, discussing this plan with the medical personnel, following up on diagnostic studies and following the patient for clinical stability excluding any and all procedures. At least 50% of this time was spent in direct, [id number] contact. Thank you, Stephanie Suresh NP, for allowing me to participate in this patient's care. Further recommendations will depend on the patient's clinical course. Please do not hesitate to contact me if you have any questions or concerns. This medical document was created using an electronic medical record system with [employer] dictation system. Although these documentations are being carefully reviewed, there may still be some phonetic and typographical changes. The errors are purely typographical, due to imperfection on the software program, and do not reflect any compromise in the patient's medical care. Plan discussed with: Patient, Other (RN/MERCEDES Suresh/) SADI RODRIGEZ MD Jun 10, 2024 20:39
[2024-06-10] MEDS: OSELTAMIVIR 75 MG CAP PO SCH (22:03)
[2024-06-10] MEDS: POTASSIUM CHL 20MEQ/100ML 100 ML IV SCH (23:15)
[2024-06-11] VITALS (7 sets, daily range): BP systolic 97–117; BP diastolic 60–77; PULSE 85–110; RESP 14–24; TEMP 98.1–98.9; O2SAT 98–100
[2024-06-11] MEDS ORDERED: LEVALBUTEROL HCL 1.25 MG/3 ML NEB NEB SCH
[2024-06-11 00:39] LABS: Anion Gap 10.00001 (5-15)
[2024-06-11 00:44] LABS: BUN/Creatinine Ratio 7.5 (10.0-20.0)
[2024-06-11 00:45] LABS: Blood Urea Nitrogen 6 mg/dL (9-23); Calcium 7.4 mg/dL (8.7-10.4); Chloride 111 mmol/L (98-107); Glucose 239 mg/dL (74-106); Sodium 131 mmol/L (136-145)
[2024-06-11 00:51] LABS: Carbon Dioxide < 10 mmol/L (20-31)
[2024-06-11 02:04] LABS: Basophils # (auto) 0 10 ^3/uL (0-0.2); Basophils % (auto) 0.1 % (0.0-2.0); Eosinophils # (auto) 0 10 ^3/uL (0-0.8); Hematocrit 40.1 % (36.0-46.0); Hemoglobin 13.4 g/dL (12.2-16.2); Lymphocytes # (auto) 0.9 10 ^3/uL (0.4-5.4); Lymphocytes % (auto) 8.5 % (10.0-50.0); Mean Corpuscular Hemoglobin 29.2 pg (28.0-32.0); Mean Corpuscular Hgb Conc. 33.4 g/dL (32.0-36.0); Mean Corpuscular Volume 87.4 fL (80.0-100.0); Monocytes % (auto) 8.9 % (0.0-12.0); Neutrophils # (auto) 8.9 10 ^3/uL (1.6-8.6); Neutrophils % (auto) 82.5 % (37.0-80.0); Nucleated Red Blood Cells % 0.1 %; Platelet Count (auto) 112 10^3/uL (140-450); Red Blood Cells 4.59 10^6/uL (4.0-5.20); Red Cell Distribution Width 14.1 % (11.8-14.3); White Blood Cell 10.8 10^3/uL (4.4-10.8)
[2024-06-11] MEDS: AZITHROMYCIN 500MG/ 250ML 250 ML IV SCH (02:08)
[2024-06-11] MEDS: INSULIN LANTUS (GLARGINE) 1 /0.01ml (100units/ml) SC ONE (04:22)
[2024-06-11 06:43] LABS: Basophils # (auto) 0 10 ^3/uL (0-0.2); Basophils % (auto) 0.1 % (0.0-2.0); Eosinophils # (auto) 0 10 ^3/uL (0-0.8); Hemoglobin 14.6 g/dL (12.2-16.2); Lymphocytes # (auto) 0.6 10 ^3/uL (0.4-5.4); Lymphocytes % (auto) 5.6 % (10.0-50.0); Mean Corpuscular Hemoglobin 29.3 pg (28.0-32.0); Mean Corpuscular Volume 86.1 fL (80.0-100.0); Monocytes # (auto) 1.3 10 ^3/uL (0-1.3); Monocytes % (auto) 12.8 % (0.0-12.0); Neutrophils # (auto) 8.1 10 ^3/uL (1.6-8.6); Neutrophils % (auto) 81.5 % (37.0-80.0); Nucleated Red Blood Cells % 0.2 %; Platelet Count (auto) 113 10^3/uL (140-450); Red Cell Distribution Width 14.1 % (11.8-14.3)
[2024-06-11 06:50] LABS: Alanine Aminotransferase 38 U/L (7-40); Albumin 3.3 g/dL (3.2-4.8); Alkaline Phosphatase 78 U/L (46-116); Aspartate Aminotransferase 19 U/L (13-40)
[2024-06-11 06:52] LABS: BUN/Creatinine Ratio 5.6 (10.0-20.0); Bilirubin, Total 0.3 mg/dL (0.2-1.0); Blood Urea Nitrogen < 5 mg/dL (9-23); Calcium 8.2 mg/dL (8.7-10.4); Chloride 107 mmol/L (98-107); Glucose 182 mg/dL (74-106); Sodium 131 mmol/L (136-145); Total Protein 5.5 g/dL (5.7-8.2)
[2024-06-11 06:54] LABS: Anion Gap 14.00001 (5-15); Carbon Dioxide < 10 mmol/L (20-31)
[2024-06-11] MEDS ORDERED: DEXTROSE (50%) 50ML SYRG IV PRN (07:00)
[2024-06-11] MEDS: ACCU-CHEK COMFORT CURVE STRIP VI SCH (08:27)
[2024-06-11] MEDS: SODIUM CHLORIDE 0.9% 1,000 ML IV SCH (08:52)
[2024-06-11] MEDS ORDERED: ENOXAPARIN SOD 40 MG/0.4 ML SYRINGE SC SCH (10:00)
[2024-06-11] MEDS ORDERED: INSULIN LANTUS (GLARGINE) 1 /0.01ml (100units/ml) SC SCH (10:00)
[2024-06-11] MEDS: PANTOPRAZOLE 40 MG/10 ML VIAL INJ IV SCH (10:26)
[2024-06-11] MEDS: INSULIN LANTUS (GLARGINE) 1 /0.01ml (100units/ml) SC SCH (10:27)
[2024-06-11] MEDS: SOD CHL 0.9%/ KCL 20MEQ 1,000 ML IV SCH (11:15)
--- NOTE | 2024-06-11 12:00 | DVHPN2 ---
Subjective shortness of breath , cough . with nausea and vomiting Reviewed: Care Plan, H&P, Labs, Medications, Previous Orders, Radiology Changes from previous H/P or p: No Changes Eyes: No Pain, No Vision change, No Conjunctivae inflammation, No Eyelid inflammation, No Other, No Redness ENT: No Ear pain, No Ear discharge, No Nose pain, No Nose discharge, No Nose congestion, No Mouth pain, No Mouth swelling, No Throat pain, No Throat swelling, No Other Cardiovascular: No Chest Pain, No Palpitations, No Orthopnea, No Paroxysmal Noc. Dyspnea, No Edema, No Lt Headedness, No Other Respiratory: No Cough, No Dry; Shortness of breath, SOB with excertion; No Wheezing, No Hemoptysis, No Pleuritic Pain, No Sputum, No Other Gastrointestinal: Nausea, Vomiting; No Abdominal Pain, No Diarrhea, No Constipation, No Melena, No Hematochezia, No Other Genitourinary: No Dysuria, No Frequency, No Incontinence, No Hematuria, No Retention, No Other Musculoskeletal: No other, No neck pain, No shoulder pain, No arm pain, No back pain, No hand pain, No leg pain, No foot pain Skin: No Rash, No Lesions, No Jaundice, No Bruising, No Other Objective Vitals Vital Signs Date Time Temp Pulse Resp B/P (MAP) Pulse Ox O2 Delivery O2 Flow Rate FiO2 06/11/24 10:30 104 28 111/54 (73) 97 06/10/24 19:30 Room Air* 0 21 06/10/24 07:33 98.1 98.1 Intake/Output Intake and Output 06/11/24 07:00 Intake Total 5027.0 ml Balance 5027.0 ml Intake IV Total 5027.0 ml Exam shortness of breath. with nausea and vomiting General Appearance: Alert, Oriented X3, No acute distress HEENT: PERRLA Lungs: Clear to auscultation Cardiovascular: Other (tachycardia ) Abdomen: Normal bowel sounds, Other (nausea and vomiting ) Extremities: No clubbing, No cyanosis, No edema, Normal pulses, No tenderness/swelling Neuro: Normal speech Skin: Dry, Intact Psych/Mental Status: Mental status NL Medications Current Medications Medications Dose Ordered Sig/Rolo Route Start Time Stop Time Status Last Admin Dose Admin Potassium Chloride 100 ml @ 50 mls/hr Q2H IV 06/10/24 11:45 06/10/24 19:44 UNV Insulin Glargine 15 units DAILY SC 06/11/24 10:00 06/11/24 10:27 15 UNITS Ondansetron HCl 4 mg Q4HP PRN IV 06/10/24 13:00 Docusate Sodium 100 mg BIDPRN PRN PO 06/10/24 13:00 Morphine Sulfate 2 mg Q4HPRN PRN IV 06/10/24 13:00 Hold Nitroglycerin 0.4 mg Q5MINP PRN SL 06/10/24 13:00 Oseltamivir Phosphate 75 mg Q12HR PO 06/10/24 22:00 06/15/24 21:59 06/11/24 10:26 75 MG Pantoprazole Sodium 40 mg DAILY IV 06/11/24 10:00 06/11/24 10:26 40 MG Enoxaparin Sodium 80 mg Q12H SC 06/10/24 16:00 06/11/24 04:15 80 MG Ceftriaxone Sodium 50 ml @ 100 mls/hr Q24H IV 06/10/24 23:30 06/10/24 01:45 100 MLS/HR Azithromycin 250 ml @ 125 mls/hr Q24H IV 06/10/24 23:30 06/11/24 02:08 125 MLS/HR Diagnostic Test (Pha) 1 strip IQ4HR 06/11/24 08:00 06/11/24 08:27 1 STRIP Insulin Human Regular IQ4HR SC 06/11/24 08:00 06/11/24 08:27 3 UNITS Dextrose 50 ml UD PRN IV 06/11/24 07:00 Potassium Chloride/Sodium Chloride 1,000 ml @ 120 mls/hr Q8H20M IV 06/11/24 11:15 Throat Lozenges 1 malika Q2HP PRN MT 06/11/24 11:15 Laboratory Results Laboratory Tests 06/11/24 05:54 Chemistry Test 06/10/24 13:36 06/10/24 19:00 06/11/24 00:23 06/11/24 05:54 Calcium Level 8.5 mg/dL (8.7-10.4) L 8.3 mg/dL (8.7-10.4) L 7.4 mg/dL (8.7-10.4) L 8.2 mg/dL (8.7-10.4) L Magnesium Level 2.1 mg/dL (1.6-2.6) Phosphorus Level 3.0 mg/dL (2.4-5.1) Albumin 3.3 g/dL (3.2-4.8) Total Protein 5.5 g/dL (5.7-8.2) L Coagulation Test 06/10/24 13:36 D-Dimer, Quantitative 1.06 mg/L FEU (0.0-0.49) H LFT Test 06/11/24 05:54 Alanine Aminotransferase (ALT) 38 U/L (7-40) Alkaline Phosphatase 78 U/L (46-116) Aspartate Amino Transferase (AST) 19 U/L (13-40) Total Bilirubin 0.3 mg/dL (0.2-1.0) Urinalysis Test 06/10/24 09:00 Urine Color Colorless (Yellow) Urine Clarity Clear (Clear) Urine pH 5.5 (5.0-9.0) Urine Specific [place] 1.017 (1.001-1.035) Urine Protein 1+ (Negative) H Urine Ketones 4+ (Negative) H Urine Blood 1+ /uL (Negative) H Urine Nitrite Negative (Negative) Urine Bilirubin Negative (Negative) Urine Urobilinogen Normal mg/dL (Negative) Urine Leukocyte Esterase Negative /uL (Negative) Urine RBC 1 /hpf (0 - 4) Urine WBC 2 /hpf (0 - 5) Urine Squamous Epithelial Cells Few /hpf (<5) Urine Bacteria None seen /hpf (None Seen) Urine Mucus Few (None Seen) Urine Osmolality 471 mOsm/kg Urine Sodium 38 mmol/L (40-220) L Urine Glucose 4+ mg/dL (Normal) H Urine Test Negative (Negative) Blood Gas Results Test 06/10/24 13:45 06/10/24 16:27 06/10/24 19:13 Arterial Blood pH 6.968 (7.350-7.450) 7.016 (7.350-7.450) 7.220 (7.350-7.450) FiO2 % 28.0 21.0 21.0 Labs and/or images reviewed: Labs reviewed by me, Image(s) reviewed by me Assessment/Plan Assessment/Plan 34-year-old alert and oriented female presented with shortness of breath with productive cough since [place], also with symptoms of nausea vomiting. Patient has past medical history of diabetes type 1 was diagnosed in 2018. Patient presents with tachypnea and a tachycardia denies any fever chest pain palpitations dizziness. States the nausea vomiting has resolved. Patient being treated for DKA and influenza. Spoke with the patient this morning patient states symptoms have improved Patient is currently on room air, lungs are clear bilateral. Patient states having trouble speaking most likely due to coughing possible laryngitis. assessment: -Diabetic ketoacidosis -nausea vomiting resolved -metabolic acidosis -hypocapnia -influenza A positive -laryngitis -hyponatremia -hypokalemia -leukocytosis resolved -tachycardia -ketonuria Plan: -check CBC CMP a.m. daily -insulin drip stopped anion gap closed -moderate sliding scale q.4 -transition patient on Lantus -transition patient to consistent carb diet -DC bicarb drip, switched IV fluids to normal NS with 20 mEq potassium at 120/mL an hour -throat lozenges for cough -antiemetic medications ordered for nausea vomiting Plan discussed with: Patient, Other (nurse) Date of Service: Jun 11, 2024 Billing Provider: HENRIQUE GIMENEZ NP Common Visit Codes: [id number] INP/OBS CARE(MOD) [employer] STUDENT COOK STARCH Jun 11, 2024 12:00
[2024-06-11] MEDS ORDERED: ALBUTEROL SULF 2.5 MG/0.5ML(0.5%) NEB SOLN NEB PRN (13:30)
[2024-06-11] MEDS ORDERED: guaiFENesin-DM 100/10mg/5ml SYR PO PRN (13:30)
[2024-06-11] MEDS ORDERED: INSLISPI SC (14:56)
[2024-06-11] MEDS ORDERED: [UNRECOGNIZED DRUG - CODE] SC (14:56)
[2024-06-11] MEDS ORDERED: INSU100I21 SC (14:56)
[2024-06-11] MEDS: POTASSIUM EFFERVESENT TAB 25 MEQ PO ONE (15:29)
[2024-06-11 16:14] LABS: Calcium 8.9 mg/dL (8.7-10.4)
[2024-06-11 16:17] LABS: Anion Gap 12 (5-15); Carbon Dioxide 12 mmol/L (20-31); Chloride 109 mmol/L (98-107); Potassium 2.9 mmol/L (3.5-5.1); Sodium 133 mmol/L (136-145)
[2024-06-11 16:20] LABS: BUN/Creatinine Ratio 5.6 (10.0-20.0); Blood Urea Nitrogen < 5 mg/dL (9-23); Glucose 204 mg/dL (74-106); Magnesium 2.1 mg/dL (1.6-2.6)
[2024-06-11] MEDS: ONDANSETRON HCL 4 MG/2 ML VIAL IV PRN (16:40)
--- NOTE | 2024-06-11 18:40 | DVHPN2 ---
Progress Note - Dictate Date Seen: Jun 11, 2024 Medical Necessity Reason Pt with a Central, PICC or Fol: No Subjective Patient seen and examined at bedside. Breathing comfortably on room air. Overnight events reviewed. vital signs Vital Sign Date Time Temp Pulse Resp B/P (MAP) Pulse Ox O2 Delivery O2 Flow Rate FiO2 06/11/24 17:00 98.1 109 22 109/70 (83) 98 98.1 06/11/24 15:37 Room Air* 0 21 Total Intake and Output 06/10/24 06/10/24 06/11/24 15:00 23:00 07:00 Intake Total 2001.0 ml 1401.0 ml 1625 ml Balance 2001.0 ml 1401.0 ml 1625 ml medications Current Medications Medications Dose Ordered Sig/Rolo Route Start Time Stop Time Status Last Admin Dose Admin Potassium Chloride 100 ml @ 50 mls/hr Q2H IV 06/10/24 11:45 06/10/24 19:44 UNV Insulin Glargine 15 units DAILY SC 06/11/24 10:00 06/11/24 10:27 15 UNITS Ondansetron HCl 4 mg Q4HP PRN IV 06/10/24 13:00 06/11/24 16:40 4 MG Docusate Sodium 100 mg BIDPRN PRN PO 06/10/24 13:00 Morphine Sulfate 2 mg Q4HPRN PRN IV 06/10/24 13:00 Hold Nitroglycerin 0.4 mg Q5MINP PRN SL 06/10/24 13:00 Oseltamivir Phosphate 75 mg Q12HR PO 06/10/24 22:00 06/15/24 21:59 06/11/24 10:26 75 MG Pantoprazole Sodium 40 mg DAILY IV 06/11/24 10:00 06/11/24 10:26 40 MG Enoxaparin Sodium 80 mg Q12H SC 06/10/24 16:00 06/11/24 16:42 80 MG Ceftriaxone Sodium 50 ml @ 100 mls/hr Q24H IV 06/10/24 23:30 06/10/24 01:45 100 MLS/HR Azithromycin 250 ml @ 125 mls/hr Q24H IV 06/10/24 23:30 06/11/24 02:08 125 MLS/HR Diagnostic Test (Pha) 1 strip IQ4HR 06/11/24 08:00 06/11/24 16:00 1 STRIP Insulin Human Regular IQ4HR SC 06/11/24 08:00 06/11/24 16:42 6 UNITS Dextrose 50 ml UD PRN IV 06/11/24 07:00 Potassium Chloride/Sodium Chloride 1,000 ml @ 120 mls/hr Q8H20M IV 06/11/24 11:15 06/11/24 11:15 120 MLS/HR Throat Lozenges 1 malika Q2HP PRN MT 06/11/24 11:15 Albuterol 2.5 mg Q6HPRN PRN NEB 06/11/24 13:30 Guaifenesin/ Dextromethorphan 10 ml Q4HP PRN PO 06/11/24 13:30 objective Gen.: Patient lying in bed in no apparent distress. Breathing on room air. Head: Normocephalic, atraumatic. Eyes: EOMI/PERRLA. Ears: Normal hearing. Normal anatomy. Neck/trachea: Trachea midline, supple. Nose: Normal external anatomy. Mouth: Moist mucous membranes. Chest: Decreased air entry bilaterally. No wheezing or rhonchi. Cardiovascular: Positive S1, positive S2. Regular rate and rhythm. Abdomen: Positive bowel sounds in all 4 quadrants. Soft, non-tender, non- distended. : Deferred. Rectal: Deferred. Skin: Warm, dry. Intact. Extremities: 2+ radial pulses bilaterally. No lower extremity edema. Neuro: Awake, alert, oriented x3. No gross motor or sensory deficits. Cranial nerves II through XII intact. Gait not assessed. laboratory and microbiology Laboratory Tests 06/11/24 15:37 06/11/24 05:54 Test 06/11/24 15:37 Range/Units Serum Glucose 204 H 74-106 mg/dL Assessment/Plan Impression: Diabetic ketoacidosis, resolved. Pneumonia, likely gram negative Influenza A Atelectasis Dyspnea Leukocytosis Lactic acidosis Metabolic acidosis Hyponatremia Events: Breathing on room air No respiratory distress. Tamiflu course Continue bronchodilators - Albuterol neb Continue antibiotics Antitussive PRN cough Incentive spirometry Labs and imaging reviewed. Rest of plan as noted below. Plan: Supplemental oxygen PRN Titrate to keep O2 sats above 92%. CXR demonstrates no acute opacities, pleural effusion or pneumothorax. CT chest notable for left upper lobe and left lower lobe pneumonia; left lung opacities. Tamiflu course. Continue bronchodilators. Antibiotics Incentive spirometry d/t atelectasis Therapeutic Lovenox Accu-Cheks, Insulin drip Monitor renal function. Monitor electrolytes. Supplement as necessary. Monitor ins and outs. IV fluid hydration GI prophylaxis - Protonix DVT prophylaxis. Prognosis: Guarded given patient's multiple co-morbidities. Rest of plan per hospitalist and other consultants. Thank you, Stephanie Suresh NP, for allowing me to participate in this patient's care. Further recommendations will depend on the patient's clinical course. Please do not hesitate to contact me if you have any questions or concerns. This medical document was created using an electronic medical record system with [employer] computerized dictation system. Although these documentations are being carefully reviewed, there may still be some phonetic and typographical changes. The errors are purely typographical, due to imperfection on the software program, and do not reflect any compromise in the patient's medical care. Plan discussed with: Patient, Other (ROBERTO De Leon) SADI RODRIGEZ MD Jun 11, 2024 18:40
[2024-06-11] MEDS: POTASSIUM CHLORIDE 40 MEQ, LIDOCAINE 1% (LOCAL ANESTH.) 4 ML in SODIUM CHL 0.9% 250 ML IV ONE (20:00)
[2024-06-12] VITALS (11 sets, daily range): BP systolic 103–143; BP diastolic 58–87; PULSE 93–105; RESP 17–20; TEMP 98–99.3; O2SAT 93–99
[2024-06-12 06:09] LABS: Albumin 3.3 g/dL (3.2-4.8); Alkaline Phosphatase 82 U/L (46-116); Anion Gap 13 (5-15); Aspartate Aminotransferase 14 U/L (13-40); Calcium 8.9 mg/dL (8.7-10.4); Sodium 137 mmol/L (136-145)
[2024-06-12 06:10] LABS: Bilirubin, Total 0.5 mg/dL (0.2-1.0)
[2024-06-12 06:33] LABS: Basophils # (auto) 0 10 ^3/uL (0-0.2); Basophils % (auto) 0.1 % (0.0-2.0); Eosinophils # (auto) 0 10 ^3/uL (0-0.8); Hematocrit 41.5 % (36.0-46.0); Hemoglobin 14.4 g/dL (12.2-16.2); Lymphocytes # (auto) 1.1 10 ^3/uL (0.4-5.4); Lymphocytes % (auto) 14.1 % (10.0-50.0); Mean Corpuscular Hemoglobin 29.2 pg (28.0-32.0); Mean Corpuscular Hgb Conc. 34.8 g/dL (32.0-36.0); Mean Corpuscular Volume 83.9 fL (80.0-100.0); Monocytes # (auto) 0.9 10 ^3/uL (0-1.3); Monocytes % (auto) 12.1 % (0.0-12.0); Neutrophils # (auto) 5.6 10 ^3/uL (1.6-8.6); Neutrophils % (auto) 73.7 % (37.0-80.0); Nucleated Red Blood Cells % 0.1 %; Platelet Count (auto) 115 10^3/uL (140-450); Red Blood Cells 4.95 10^6/uL (4.0-5.20); Red Cell Distribution Width 13.8 % (11.8-14.3); White Blood Cell 7.6 10^3/uL (4.4-10.8)
[2024-06-12 08:21] LABS: BUN/Creatinine Ratio 7.6 (10.0-20.0); Blood Urea Nitrogen < 5 mg/dL (9-23); Carbon Dioxide 14 mmol/L (20-31); Chloride 110 mmol/L (98-107); Glucose 147 mg/dL (74-106); Potassium 2.9 mmol/L (3.5-5.1); Total Protein 5.5 g/dL (5.7-8.2)
[2024-06-12 08:35] LABS: Alanine Aminotransferase 30 U/L (7-40)
[2024-06-12] MEDS ORDERED: POTASSIUM CHLORIDE 20 MEQ, LIDOCAINE 1% (LOCAL ANESTH.) 2 ML in SODIUM CHL 0.9% 100 ML IV ONE (09:15)
--- NOTE | 2024-06-12 11:10 | DVHPN2 ---
Subjective Patient continues to have poor appetite, sore throat, generalized weakness Reviewed: Care Plan, H&P, Labs, Medications, Previous Orders, Radiology Changes from previous H/P or p: Changes General: Per HPI Eyes: No Pain, No Vision change, No Conjunctivae inflammation, No Eyelid inflammation, No Other, No Redness ENT: No Ear pain, No Ear discharge, No Nose pain, No Nose discharge, No Nose congestion, No Mouth pain, No Mouth swelling, No Throat pain, No Throat swelling, No Other Cardiovascular: No Chest Pain, No Palpitations, No Orthopnea, No Paroxysmal Noc. Dyspnea, No Edema, No Lt Headedness, No Other Respiratory: No Cough, No Dry; Shortness of breath, SOB with excertion; No Wheezing, No Hemoptysis, No Pleuritic Pain, No Sputum, No Other Gastrointestinal: Nausea, Vomiting; No Abdominal Pain, No Diarrhea, No Constipation, No Melena, No Hematochezia, No Other Genitourinary: No Dysuria, No Frequency, No Incontinence, No Hematuria, No Retention, No Other Musculoskeletal: No other, No neck pain, No shoulder pain, No arm pain, No back pain, No hand pain, No leg pain, No foot pain Skin: No Rash, No Lesions, No Jaundice, No Bruising, No Other Objective Vitals Vital Signs Date Time Temp Pulse Resp B/P (MAP) Pulse Ox O2 Delivery O2 Flow Rate FiO2 06/12/24 09:00 98.0 97 20 128/59 (82) 99 98.0 06/12/24 07:57 Room Air* 0 21 Intake/Output Intake and Output 06/12/24 07:00 Intake Total 1570 ml Balance 1570 ml Intake Oral 1100 ml IV Total 470 ml # Voids 1 General Appearance: Alert, Oriented X3, No acute distress HEENT: PERRLA Lungs: Clear to auscultation Cardiovascular: Other (tachycardia ) Abdomen: Normal bowel sounds, Other (nausea and vomiting ) Extremities: No clubbing, No cyanosis, No edema, Normal pulses, No tenderness/swelling Neuro: Normal speech Skin: Dry, Intact Psych/Mental Status: Mental status NL Medications Current Medications Medications Dose Ordered Sig/Rolo Route Start Time Stop Time Status Last Admin Dose Admin Potassium Chloride 100 ml @ 50 mls/hr Q2H IV 06/10/24 11:45 06/10/24 19:44 UNV Insulin Glargine 15 units DAILY SC 06/11/24 10:00 06/12/24 10:42 15 UNITS Ondansetron HCl 4 mg Q4HP PRN IV 06/10/24 13:00 06/11/24 16:40 4 MG Docusate Sodium 100 mg BIDPRN PRN PO 06/10/24 13:00 Morphine Sulfate 2 mg Q4HPRN PRN IV 06/10/24 13:00 Hold Nitroglycerin 0.4 mg Q5MINP PRN SL 06/10/24 13:00 Oseltamivir Phosphate 75 mg Q12HR PO 06/10/24 22:00 06/15/24 21:59 06/12/24 09:19 75 MG Pantoprazole Sodium 40 mg DAILY IV 06/11/24 10:00 06/12/24 09:19 40 MG Ceftriaxone Sodium 50 ml @ 100 mls/hr Q24H IV 06/10/24 23:30 06/11/24 22:15 100 MLS/HR Azithromycin 250 ml @ 125 mls/hr Q24H IV 06/10/24 23:30 06/11/24 23:51 125 MLS/HR Diagnostic Test (Pha) 1 strip IQ4HR 06/11/24 08:00 06/12/24 09:19 1 STRIP Dextrose 50 ml UD PRN IV 06/11/24 07:00 Throat Lozenges 1 malika Q2HP PRN MT 06/11/24 11:15 Albuterol 2.5 mg Q6HPRN PRN NEB 06/11/24 13:30 Guaifenesin/ Dextromethorphan 10 ml Q4HP PRN PO 06/11/24 13:30 Laboratory Results Laboratory Tests 06/12/24 04:45 Chemistry Test 06/11/24 15:37 06/12/24 04:45 Calcium Level 8.9 mg/dL (8.7-10.4) 8.9 mg/dL (8.7-10.4) Magnesium Level 2.1 mg/dL (1.6-2.6) 2.1 mg/dL (1.6-2.6) Albumin 3.3 g/dL (3.2-4.8) Total Protein 5.5 g/dL (5.7-8.2) L LFT Test 06/12/24 04:45 Alanine Aminotransferase (ALT) 30 U/L (7-40) Alkaline Phosphatase 82 U/L (46-116) Aspartate Amino Transferase (AST) 14 U/L (13-40) Total Bilirubin 0.5 mg/dL (0.2-1.0) Urinalysis Test 06/10/24 09:00 Urine Color Colorless (Yellow) Urine Clarity Clear (Clear) Urine pH 5.5 (5.0-9.0) Urine Specific [place] 1.017 (1.001-1.035) Urine Protein 1+ (Negative) H Urine Ketones 4+ (Negative) H Urine Blood 1+ /uL (Negative) H Urine Nitrite Negative (Negative) Urine Bilirubin Negative (Negative) Urine Urobilinogen Normal mg/dL (Negative) Urine Leukocyte Esterase Negative /uL (Negative) Urine RBC 1 /hpf (0 - 4) Urine WBC 2 /hpf (0 - 5) Urine Squamous Epithelial Cells Few /hpf (<5) Urine Bacteria None seen /hpf (None Seen) Urine Mucus Few (None Seen) Urine Osmolality 471 mOsm/kg Urine Sodium 38 mmol/L (40-220) L Urine Glucose 4+ mg/dL (Normal) H Urine Test Negative (Negative) Microbiology Microbiology Date/Time Source Procedure Growth Status 06/10/24 13:36 Blood Blood Culture - Preliminary NO GROWTH AFTER 24 HOURS OF INCUBATION. Resulted Labs and/or images reviewed: Labs reviewed by me, Image(s) reviewed by me Assessment/Plan Assessment/Plan Impression: -type 1 diabetes mellitus -diabetic ketoacidosis -influenza A -hypokalemia -acute kidney injury, probable vasomotor nephropathy -sirs without organ dysfunction Plan: Events: Patient continues to be tachycardic, hypokalemic, with poor oral intake. -continue Tamiflu -continue empiric antibiotic therapy -Cepacol lozenges -potassium replacement -IV hydration -regular insulin sliding scale a.c./HS, continue Lantus -continue electrolyte replete -repeat labs in a.m., reassess for discharge Total time spent with patient discussing and formulating plan of care: 35 minutes. This medical document was created using an electronic medical record system with [employer] dictation system. Although this document has been carefully reviewed, there may still be some phonetic and typographical errors. These areas are purely typographical due to imperfections of the software programs, and do not reflect any compromise in the patient's medical care. Plan discussed with: Patient, Other (RN) My Orders Orders - HENRIQUE GIMENEZ NP Procedure Category Date Status Time Consistent DIET 06/11/24 Transmitted Carb(Ccho)Diabetes Lunch Throat Lozenges PHA 06/11/24 In Process (Cepastat Lozenges) 11:15 Transfer Orders XFER 06/11/24 Transmitted 12:20 Potassium Er Tablet PHA 06/12/24 Logged (Klor-Con Tablet) 09:15 Potassium Chloride PHA 06/12/24 Logged (Potassium Chloride). 09:15 Sod Chl 0.9%/ Kcl PHA 06/12/24 Logged 40meq 09:30 Date of Service: Jun 12, 2024 Billing Provider: HENRIQUE GIMENEZ NP Common Visit Codes: [id number] INP/OBS CARE(HIGH) HENRIQUE GIMENEZ NP Jun 12, 2024 11:10
[2024-06-12] MEDS: POTASSIUM CHL 10 Meq TABLET PO ONE (12:26)
[2024-06-12] MEDS: SOD CHL 0.9%/ KCL 40MEQ 1,000 ML IV ONE (12:27)
[2024-06-12] MEDS: THROAT LOZENGES(CEPASTAT) MT PRN (12:31)
[2024-06-12] MEDS ORDERED: DEXTROSE (50%) 50ML SYRG IV PRN (15:00)
[2024-06-12] MEDS: ACCU-CHEK COMFORT CURVE STRIP VI SCH (17:31)
[2024-06-12] MEDS: InsuLIN REG 1unit/0.01ml Soln (100units/ml) SC SCH ×2 (17:39→21:35)
[2024-06-13] VITALS (8 sets, daily range): BP systolic 91–105; BP diastolic 53–67; PULSE 82–93; RESP 16–20; TEMP 36.7; O2SAT 96–98
[2024-06-13] MEDS: POTASSIUM EFFERVESENT TAB 25 MEQ PO ONE (08:39)
[2024-06-13] MEDS ORDERED: DEXTROSE (50%) 50ML SYRG IV PRN (09:45)
[2024-06-13] MEDS: ACCU-CHEK COMFORT CURVE STRIP VI SCH (11:27)
[2024-06-13] MEDS: InsuLIN REG 1unit/0.01ml Soln (100units/ml) SC SCH (11:34)
[2024-06-13] MEDS: POTASSIUM CHLORIDE 80 MEQ, LIDOCAINE 1% (LOCAL ANESTH.) 6 ML in SODIUM CHL 0.9% 500 ML IV ONE (14:30)
[2024-06-13] MEDS ORDERED: TAMIFLU PO (14:49)
[2024-06-13] MEDS ORDERED: POTA8TAB38 PO ×2 (14:49→15:07)
--- NOTE | 2024-06-13 14:50 | DVHDS2 ---
Discharge Summary Date of Admission Jun 10, 2024 at 13:00 Date of Discharge: Jun 13, 2024 Admitting Diagnosis Diabetic ketoacidosis Labs/Diagnostic Data: Laboratory Results Test 06/13/24 14:00 06/13/24 11:29 06/12/24 04:45 06/10/24 19:13 Potassium Level 3.1 mmol/L (3.5-5.1) POC Glucose 184 mg/dl (70-106) White Blood Count 7.6 10^3/uL (4.4-10.8) Red Blood Count 4.95 10^6/uL (4.0-5.20) Hemoglobin 14.4 g/dL (12.2-16.2) Hematocrit 41.5 % (36.0-46.0) Mean Corpuscular Volume 83.9 fL (80.0-100.0) Mean Corpuscular Hemoglobin 29.2 pg (28.0-32.0) Mean Corpuscular Hemoglobin Concent 34.8 g/dL (32.0-36.0) Red Cell Distribution Width 13.8 % (11.8-14.3) Platelet Count 115 10^3/uL (140-450) Mean Platelet Volume 8.5 fL (6.9-10.8) Neutrophils (%) (Auto) 73.7 % (37.0-80.0) Lymphocytes (%) (Auto) 14.1 % (10.0-50.0) Monocytes (%) (Auto) 12.1 % (0.0-12.0) Eosinophils (%) (Auto) 0.0 % (0.0-7.0) Basophils (%) (Auto) 0.1 % (0.0-2.0) Neutrophils # (Auto) 5.6 10 ^3/uL (1.6-8.6) Lymphocytes # (Auto) 1.1 10 ^3/uL (0.4-5.4) Monocytes # (Auto) 0.9 10 ^3/uL (0-1.3) Eosinophils # (Auto) 0 10 ^3/uL (0-0.8) Basophils # (Auto) 0 10 ^3/uL (0-0.2) Nucleated Red Blood Cells 0.1 % Sodium Level 137 mmol/L (136-145) Chloride Level 110 mmol/L (98-107) Carbon Dioxide Level 14 mmol/L (20-31) Anion Gap 13 (5-15) Blood Urea Nitrogen < 5 mg/dL (9-23) Creatinine 0.66 mg/dL (0.550-1.02) Glomerular Filtration Rate Calc 117 mL/min (>90) BUN/Creatinine Ratio 7.6 (10.0-20.0) Serum Glucose 147 mg/dL (74-106) Calcium Level 8.9 mg/dL (8.7-10.4) Magnesium Level 2.1 mg/dL (1.6-2.6) Total Bilirubin 0.5 mg/dL (0.2-1.0) Aspartate Amino Transferase (AST) 14 U/L (13-40) Alanine Aminotransferase (ALT) 30 U/L (7-40) Alkaline Phosphatase 82 U/L (46-116) Total Protein 5.5 g/dL (5.7-8.2) Albumin 3.3 g/dL (3.2-4.8) Blood Gas Specimen Type Arterial Blood Gas Sample Site Right radial Blood Gas Patient Temperature 37.0 Arterial Blood Date Drawn [id number] Arterial Blood pH 7.220 (7.350-7.450) Arterial Blood Partial Pressure CO2 16.2 mmHg (32.0-45.0) Arterial Blood Partial Pressure O2 77.7 mmHg (83.0-108.0) Arterial Blood HCO3 6.5 mmol/L (21.0-28.0) Arterial Blood Oxygen Saturation 96.5 % (94.0-98.0) Arterial Blood Base Excess -18.6 mmol/L (-2.0-3.0) Arterial Blood Oxyhemoglobin 95.5 % (94.0-98.0) Arterial Blood Carboxyhemoglobin 0.3 % (0.5-1.5) Arterial Blood Methemoglobin 0.7 % (0.0-1.5) Luis Enrique Test Yes Blood Gas Total Hemoglobin 15.50 g/dL (12.0-16.0) Blood Gas Modality Room air FiO2 % 21.0 Blood Gas Critical Value Read Back yes Blood Gas Notified Whom eduard ruiz Blood Gas Notified Time [id number] Blood Gas Notified By accounts payable clerk rubi mary ellen Test 06/10/24 17:28 06/10/24 13:45 06/10/24 13:36 06/10/24 10:54 Lactic Acid Level 2.1 mmol/L (0.4-2.0) Blood Gas Liter Flow 2.00 Blood Gas Spontaneous Rate 26 D-Dimer, Quantitative 1.06 mg/L FEU (0.0-0.49) Serum Osmolality 300 mOsm/kg (278-298) Phosphorus Level 3.0 mg/dL (2.4-5.1) Troponin I High Sensitivity 3 ng/L (</=34) Beta-Hydroxybutyric Acid > 4.500 mmol/L (< 0.4) Prothrombin Time 10.7 sec (9.3-11.8) Prothrombin Time INR 1.01 (0.9-1.15) Activated Partial Thromboplast Time 40.3 SEC (24.5-34.5) Hemoglobin A1c 10.6 % A1C (<5.7) B-Type Natriuretic Peptide 41.31 pg/mL (0-100) Test 06/10/24 10:45 06/10/24 09:00 Influenza Type A Antigen Positive (Negative) Influenza Type B Antigen Negative (Negative) SARS-CoV-2 Antigen (Rapid) Negative (NEGATIVE) Urine Color Colorless (Yellow) Urine Clarity Clear (Clear) Urine pH 5.5 (5.0-9.0) Urine Specific [place] 1.017 (1.001-1.035) Urine Protein 1+ (Negative) Urine Ketones 4+ (Negative) Urine Blood 1+ /uL (Negative) Urine Nitrite Negative (Negative) Urine Bilirubin Negative (Negative) Urine Urobilinogen Normal mg/dL (Negative) Urine Leukocyte Esterase Negative /uL (Negative) Urine RBC 1 /hpf (0 - 4) Urine WBC 2 /hpf (0 - 5) Urine Squamous Epithelial Cells Few /hpf (<5) Urine Bacteria None seen /hpf (None Seen) Urine Mucus Few (None Seen) Urine Osmolality 471 mOsm/kg Urine Sodium 38 mmol/L (40-220) Urine Glucose 4+ mg/dL (Normal) Urine Test Negative (Negative) Other Laboratory Tests 06/13/24 14:00 06/12/24 04:45 Brief Hx & Hospital Course: History of Present Illness 34 yr old dm no sx history cc here patient states she has not been able to catch her breath and she has been shortness of the breath he has been going on for last 24 hours. She does state she has a cough it came on all of a sudden. She states she has been taking her medications as prescribed. She denies any chest pain. The patient has also had some nausea and vomiting. We will evaluating patient patient with he was Schmorl's breathing on my exam evaluating patient's labs and imaging patient had a white count of 13.4 hemoglobin 16.9 52.3 platelet count was 122 sodium was 127 CO2 was less than 10 creatinine was 1.06 glucose was 386 troponin was negative BNP was negative calcium was 8.6 AST was 68 chest x-ray was unremarkable patient was provided with sodium bicarb for times see him normal saline Zofran or Reglan patient's PH is consistent with DKA. We will admit to ICU for acute DKA patient also has influenza tested and she was positive. We will admit for IV hydration DKA treatment in insulin and influenza treatment. Course of hospitalization: Patient was treated with insulin drip per protocol, transitioned to regular insulin sliding scale as well as Lantus. Patient was given aggressive IV hydration. Patient had potassium replete. Patient was also started on Tamiflu 75 mg p.o. twice a day. She was now able to tolerate oral intake. Vital signs are now stable. Patient will be discharged home with persistent potassium supplementation with Klor-Con 8 mEq use x5 days, as well as completing course of Tamiflu 75 mg p.o. twice a day for two more days. She will continue her regular diabetic regimen and is instructed to follow up with her oakes machine operator and her PCP within 1-2 weeks. She was agreeable with discharge plan. All questions answered. Physical examination General: Alert and Oriented x3. No acute distress. Well-nourished. Eyes: EOMI. Anicteric. HENT: Moist mucous membranes. Lungs: Clear to auscultation bilaterally. No accessory muscle use. Cardiovascular: Regular rate and rhythm. No murmur. No JVD. Abdomen: Soft, non-tender and non-distended. No palpable masses. Extremities: No edema. Non-tender. Skin: No rashes or lesions. Warm. Neurologic: No focal neurological deficits. CN II-XII grossly intact, but not individually tested. Psychiatric: Cooperative. Appropriate mood and affect. Total time spent with patient discussing and formulating plan of care: 35 minutes. This medical document was created using an electronic medical record system with [employer] computerized dictation system. Although this document has been carefully reviewed, there may still be some phonetic and typographical errors. These areas are purely typographical due to imperfections of the software programs, and do not reflect any compromise in the patient's medical care. Condition at Discharge: Fair Final Diagnosis/Problems List DKA Secondary Diagnosis: -type 1 diabetes mellitus -diabetic ketoacidosis -influenza A -hypokalemia -acute kidney injury, probable vasomotor nephropathy -sirs without organ dysfunction Discharge Disposition: Home Discharge Instruct/Medications Diet: Consistent carbohydrate Activity: No Restrictions, As Tolerated Follow Up/Referral: Follow up with the oakes machine operator at next earliest appointment Medications: Continue all home medications for diabetes mellitus Tamiflu 75 mg p.o. x2 more days Klor-Con 8 mEq use daily x5 days 36 Discharge Statement: "Patient was advised to return to the ER or call 911 if any headaches, dizziness, shortness of breath, chest pain, abdominal pain, bleeding, fevers, or worsening of medical condition. Patient was counseled about treatment plan, medications, possible side effects, patientverbalized understanding. All questions were answered to the best of my ability. This discharge took greater then 30 minutes in planning, reviewing documentation, counseling the patient, and discussing with other team members." ASSESSMENT ASSESSMENT Assessment DKA Date of Service: Jun 13, 2024 Billing Provider: HENRIQUE GIMENEZ NP Common Visit Codes: 25088-HFF/OBS DISCH DAY >30min HENRIQUE GIMENEZ NP Jun 13, 2024 14:50
[2024-06-13] MEDS ORDERED: OSEL75CA5 PO (15:07)
[2024-06-13] MEDS: POTASSIUM CHL 10 Meq TABLET PO ONE (17:10)
--- NOTE | 2024-06-13 21:10 | DVHPN2 ---
Progress Note - Dictate Date Seen: Jun 12, 2024 Medical Necessity Reason Pt with a Central, PICC or Fol: No Subjective Patient seen and examined at bedside. Breathing comfortably on room air. Overnight events reviewed. vital signs Vital Sign Date Time Temp Pulse Resp B/P (MAP) Pulse Ox O2 Delivery O2 Flow Rate FiO2 06/13/24 16:51 98.0 93 16 105/67 (80) 97 98.0 06/13/24 08:00 Room Air* 0 21 Total Intake and Output 06/12/24 06/12/24 06/13/24 15:00 23:00 07:00 Intake Total 300 ml 800 ml 800 ml Output Total 1000 ml Balance 300 ml -200 ml 800 ml medications Current Medications Medications Dose Ordered Sig/Rolo Route Start Time Stop Time Status Last Admin Dose Admin Potassium Chloride 100 ml @ 50 mls/hr Q2H IV 06/10/24 11:45 06/10/24 19:44 UNV objective Gen.: Patient lying in bed in no apparent distress. Breathing on room air. Head: Normocephalic, atraumatic. Eyes: EOMI/PERRLA. Ears: Normal hearing. Normal anatomy. Neck/trachea: Trachea midline, supple. Nose: Normal external anatomy. Mouth: Moist mucous membranes. Chest: Decreased air entry bilaterally. No wheezing or rhonchi. Cardiovascular: Positive S1, positive S2. Regular rate and rhythm. Abdomen: Positive bowel sounds in all 4 quadrants. Soft, non-tender, non- distended. : Deferred. Rectal: Deferred. Skin: Warm, dry. Intact. Extremities: 2+ radial pulses bilaterally. No lower extremity edema. Neuro: Awake, alert, oriented x3. No gross motor or sensory deficits. Cranial nerves II through XII intact. Gait not assessed. laboratory and microbiology Laboratory Tests 06/13/24 14:00 06/12/24 04:45 Test 06/12/24 04:45 Range/Units Serum Glucose 147 H 74-106 mg/dL Assessment/Plan Impression: Diabetic ketoacidosis, resolved. Pneumonia, likely gram negative Influenza A Atelectasis Dyspnea Leukocytosis Lactic acidosis Metabolic acidosis Hyponatremia Events: Breathing on room air No respiratory distress. Tamiflu course Continue antibiotics Antitussive PRN cough Incentive spirometry Blood cultures show no growth x24 hours WBC is within normal limits. Accu-Cheks, ISS Monitor blood pressures Potassium supplementation Monitor renal function. Monitor electrolytes. Supplement as necessary. Labs and imaging reviewed. Rest of plan as noted below. Plan: Supplemental oxygen PRN Titrate to keep O2 sats above 92%. CXR demonstrates no acute opacities, pleural effusion or pneumothorax. CT chest notable for left upper lobe and left lower lobe pneumonia; left lung opacities. Tamiflu course. Bronchodilators. Continue antibiotics Incentive spirometry d/t atelectasis Therapeutic Lovenox Accu-Cheks, Insulin drip Monitor renal function. Monitor electrolytes. Supplement as necessary. Monitor ins and outs. IV fluid hydration GI prophylaxis - Protonix DVT prophylaxis. Prognosis: Guarded given patient's multiple co-morbidities. Rest of plan per hospitalist and other consultants. Thank you, Stephanie Suresh NP, for allowing me to participate in this patient's care. Further recommendations will depend on the patient's clinical course. Please do not hesitate to contact me if you have any questions or concerns. This medical document was created using an electronic medical record system with [employer] dictation system. Although these documentations are being carefully reviewed, there may still be some phonetic and typographical changes. The errors are purely typographical, due to imperfection on the software program, and do not reflect any compromise in the patient's medical care. Plan discussed with: Patient, Other (RN) SADI RODRIGEZ MD Jun 13, 2024 21:09
--- NOTE | 2024-06-13 21:11 | DVHPN2 ---
Progress Note - Dictate Date Seen: Jun 13, 2024 Medical Necessity Reason Pt with a Central, PICC or Fol: No Subjective Patient seen and examined at bedside. Breathing comfortably on room air. Overnight events reviewed. vital signs Vital Sign Date Time Temp Pulse Resp B/P (MAP) Pulse Ox O2 Delivery O2 Flow Rate FiO2 06/13/24 16:51 98.0 93 16 105/67 (80) 97 98.0 06/13/24 08:00 Room Air* 0 21 Total Intake and Output 06/12/24 06/12/24 06/13/24 15:00 23:00 07:00 Intake Total 300 ml 800 ml 800 ml Output Total 1000 ml Balance 300 ml -200 ml 800 ml medications Current Medications Medications Dose Ordered Sig/Rolo Route Start Time Stop Time Status Last Admin Dose Admin Potassium Chloride 100 ml @ 50 mls/hr Q2H IV 06/10/24 11:45 06/10/24 19:44 UNV objective Gen.: Patient lying in bed in no apparent distress. Breathing on room air. Head: Normocephalic, atraumatic. Eyes: EOMI/PERRLA. Ears: Normal hearing. Normal anatomy. Neck/trachea: Trachea midline, supple. Nose: Normal external anatomy. Mouth: Moist mucous membranes. Chest: Decreased air entry bilaterally. No wheezing or rhonchi. Cardiovascular: Positive S1, positive S2. Regular rate and rhythm. Abdomen: Positive bowel sounds in all 4 quadrants. Soft, non-tender, non- distended. : Deferred. Rectal: Deferred. Skin: Warm, dry. Intact. Extremities: 2+ radial pulses bilaterally. No lower extremity edema. Neuro: Awake, alert, oriented x3. No gross motor or sensory deficits. Cranial nerves II through XII intact. Gait not assessed. laboratory and microbiology Laboratory Tests 06/13/24 14:00 06/12/24 04:45 Test 06/12/24 04:45 Range/Units Serum Glucose 147 H 74-106 mg/dL Assessment/Plan Impression: Diabetic ketoacidosis, resolved. Pneumonia, likely gram negative Influenza A Atelectasis Dyspnea Leukocytosis Lactic acidosis Metabolic acidosis Hyponatremia Events: Breathing on room air No respiratory distress. Tamiflu course Continue antibiotics Antitussive PRN cough Incentive spirometry Blood cultures show no growth x48 hours WBC is within normal limits. Accu-Cheks, ISS Monitor blood pressures Potassium supplementation Monitor renal function. Monitor electrolytes. Supplement as necessary. Labs and imaging reviewed. Rest of plan as noted below. Plan: Supplemental oxygen PRN Titrate to keep O2 sats above 92%. CXR demonstrates no acute opacities, pleural effusion or pneumothorax. CT chest notable for left upper lobe and left lower lobe pneumonia; left lung opacities. Tamiflu course. Bronchodilators. Continue antibiotics Incentive spirometry d/t atelectasis Therapeutic Lovenox Accu-Cheks, Insulin drip Monitor renal function. Monitor electrolytes. Supplement as necessary. Monitor ins and outs. IV fluid hydration GI prophylaxis - Protonix DVT prophylaxis. Prognosis: Guarded given patient's multiple co-morbidities. Rest of plan per hospitalist and other consultants. Thank you, Stephanie Suresh NP, for allowing me to participate in this patient's care. Further recommendations will depend on the patient's clinical course. Please do not hesitate to contact me if you have any questions or concerns. This medical document was created using an electronic medical record system with [employer] dictation system. Although these documentations are being carefully reviewed, there may still be some phonetic and typographical changes. The errors are purely typographical, due to imperfection on the software program, and do not reflect any compromise in the patient's medical care. Plan discussed with: Patient, Other (ROBERTO Stokes) SADI RODRIGEZ MD Jun 13, 2024 21:11
[2024-06-13] MEDS ORDERED: InsuLIN REG 1unit/0.01ml Soln (100units/ml) SC SCH (22:00)
[2024-06-14] MEDS ORDERED: POTASSIUM CHL 20 Meq TABLET PO SCH (10:00)
== END 2024-06-13 18:00 | disposition home or self-care (01) | DRG 637 ==
LOC: ER 06:52 → EDBD 06:52 → TELE 13:00 → TELE-CENTR 06-11 14:51 → CENTRAL 06-12 20:02
PROVIDERS: ADMIT Nurse Practitioner Family; ATTEND Nurse Practitioner Acute Care
DX: E10.10 Type 1 diabetes mellitus with ketoacidosis without coma (principal); J10.00 Influenza due to other identified influenza virus with unspecified type of pneumonia; N17.0 Acute kidney failure with tubular necrosis; J98.11 Atelectasis; R65.10 Systemic inflammatory response syndrome (SIRS) of non-infectious origin without acute organ dysfunction; E86.0 Dehydration; D69.6 Thrombocytopenia, unspecified; Z20.822 Contact with and (suspected) exposure to COVID-19; E87.6 Hypokalemia; J04.0 Acute laryngitis; Z88.5 Allergy status to narcotic agent; Z88.6 Allergy status to analgesic agent; Z79.4 Long term (current) use of insulin
CPT/HCPCS: 36415; 36600; 71045; 71275; 80048; 80053; 81001; 81025; 82010; 82805; 82962; 83036; 83605; 83735; 83880; 83930; 83935; 84100; 84132; 84300; 84484; 85025; 85379; 85610; 85730; 87040; 87081; 87426; 87804; 94640; 96361; 96365; 99291; G0378; J1815; J2003; J2405; J2470; J3480